=== PATIENT | male | born 1960 | race Caucasian/White ===

== ENCOUNTER 2020-06-14 12:53 | Outpatient (RCR) | payer BC ==
[2020-06-10 17:53] VITALS: BP 139/106
[2020-06-10] MEDS: SOLU MEDROL IV SCH ×2 (18:13)
[2020-06-10] MEDS: NS IV SCH ×2 (18:13)
[2020-06-11 13:00] VITALS: BP 139/84
[2020-06-11] MEDS: SOLU MEDROL IV SCH ×2 (13:01)
[2020-06-11] MEDS: NS IV SCH ×2 (13:01)
[2020-06-12 12:45] VITALS: BP 121/66
[2020-06-12] MEDS: NS IV SCH ×2 (13:14)
[2020-06-12] MEDS: SOLU MEDROL IV SCH ×2 (13:14)
[2020-06-13 12:45] VITALS: BP 130/83
[2020-06-13] MEDS: SOLU MEDROL IV SCH ×2 (12:46)
[2020-06-13] MEDS: NS IV SCH ×2 (12:46)
[~2020-06-14] VITALS: Ht 175 cm
[~2020-06-14 12:53] MED LIST: BENICAR HCT
[2020-06-14] MEDS: SOLU MEDROL IV SCH ×2 (13:11)
[2020-06-14] MEDS: NS IV SCH ×2 (13:11)
[2020-06-14 13:15] VITALS: BP 141/87
== END 2020-09-08 | disposition home or self-care (01) ==
LOC: SDC 12:53
PROVIDERS: ATTEND Internal Medicine
DX: Z23 Encounter for immunization (principal); U07.1 COVID-19
CPT/HCPCS: 96365

== ENCOUNTER → 2020-06-26 | Outpatient (CLI) | payer BC ==
[~2020-06-26] MED LIST changes: +GADOBUTROL 10 MMOL/10 ML (GADAVIST) VIAL IV ONE
--- NOTE | 2020-06-26 15:58 | Diagnostic Imaging Report ---
PROCEDURE: MR imaging of the brain with and without contrast. TECHNIQUE: Multiplanar, multisequence MR imaging of the brain was performed with and without contrast. INDICATION: Weakness. Unsteadiness. Tremors. Symptoms started after COVID vaccine. COMPARISON: None. FINDINGS: Moderate generalized cerebral and cerebellar parenchymal volume loss. Mild nonspecific T2 hyperintensities in the supratentorial white matter. No abnormal intracranial enhancement. No restricted water diffusion. No hemosiderin deposition or evidence of intracranial hemorrhage. Normal morphology including the major midline structures, sella, posterior fossa, and cerebellopontine angle. Normal intracranial flow voids. No hydrocephalus or extra-axial fluid collections. Postoperative changes in the globes. Mild mucosal thickening in ethmoid sinuses. The mastoids are clear. Normal bone marrow signal. IMPRESSION: 1. Age-appropriate MRI of the brain. No acute findings. 2. Mild mucosal thickening in the ethmoid sinuses. Dictated by: Dictated on workstation # [id number]
== END ==
LOC: RAD 14:30
DX: M62.81 Muscle weakness (generalized) (principal); J34.89 Other specified disorders of nose and nasal sinuses
CPT/HCPCS: 70553

== ENCOUNTER → 2020-07-10 | Outpatient (CLI) | payer BC ==
--- NOTE | 2020-07-10 12:59 | Diagnostic Imaging Report ---
CLINICAL INDICATION: Patient having weakness, unsteadiness, tremors which started after getting Covid and then the vaccine. EXAM: MRI of the cervical spine performed without and with 9 mL of Gadavist IV contrast IV contrast. Sequences include sagittal T1, sagittal T2, sagittal T2 fat-sat, axial T1, axial T2, sagittal T1 fat-sat post IV contrast, and axial T1 post IV contrast. COMPARISON: None. FINDINGS: There is no abnormal IV contrast enhancement. There is no acute cervical spine fracture. There is no abnormal vertebral body signal. Limited visualization of posterior fossa and cervical spinal cord shows no significant abnormality. There are multilevel cervical spine vertebral body spurs and facet arthropathy. There is no significant paraspinal soft tissue abnormality. C1-C2: There are small spurs involving the atlantoodontoid interval anteriorly. There is no significant central canal stenosis. C2-C3: There is mild left facet arthropathy. There is no significant central spinal canal or neural foramen narrowing. C3-C4: There is 3 mm of grade 1 anterolisthesis of C3 on C4. There is a diffuse disk bulge and small bilateral uncinate spurs. There is mild lateral facet arthropathy and ligamentum flavum buckling. There is severe left neural foramen narrowing and at least moderate right neural foramen narrowing. There is moderate central canal stenosis. C4-C5: There is roughly 1-2 mm of grade 1 anterolisthesis of C4 on C5. There is diffuse disk bulge with moderate loss of disk space height and bilateral uncinate spurs. There is moderate right facet arthropathy and mild left facet arthropathy. There is severe right neural foramen narrowing and at least dtsq-nf-nkmklwvq left neural foramen narrowing. There is qxbd-aj-syzfwnqs central canal stenosis. C5-C6: There is a diffuse disk bulge, small bilateral uncinate spurs, and mild bilateral facet arthropathy with hypertrophic changes on the right. There is at least severe right neural foramen narrowing and at least ebmw-qb-dliutmam left neural foramen narrowing. There is no significant central canal stenosis. C6-C7: There is a diffuse disk bulge with superimposed small disk herniation in the left subarticular region. There is mild loss of disk space height. There is mild bilateral facet arthropathy. There is mild central canal narrowing. There is qzumwtjd-so-fhlroi bilateral neural foramen narrowing. C7-T1: There is moderate bilateral facet arthropathy and ligamentum flavum buckling. There is no significant central canal narrowing. There is mild left neural foramen narrowing and kcnh-mn-jddkromy right neural foramen narrowing. IMPRESSION: 1: There is multilevel cervical spine degenerative disk disease which is worse at the C3-C4 and C4-C5 levels. 2: There is grade 1 anterolisthesis of C3 on C4 and C4 on C5. There is associated diffuse disk bulges and facet arthropathy. There is moderate C3-C4 central canal narrowing and egjl-mc-phqzbaoa C4-C5 central canal narrowing. 3: There is multilevel neural foramen narrowing, as described above. Dictated by: Dictated on workstation # [id number]
== END ==
LOC: RAD 10:57
DX: M50.31 Other cervical disc degeneration, high cervical region (principal); M43.12 Spondylolisthesis, cervical region; M48.02 Spinal stenosis, cervical region
CPT/HCPCS: 72156

== ENCOUNTER → 2020-07-15 | Outpatient (CLI) | payer BC ==
--- NOTE | 2020-07-15 09:10 | Diagnostic Imaging Report ---
EXAMINATION: Cervical spine with flexion and extension. INDICATION: Thoracic radiculopathy. TECHNIQUE: Five views were obtained including flexion and extension views in the lateral projection. COMPARISON: There are no prior plain film examinations of the cervical spine available for comparison. The recent MRI cervical spine exam of 07/10/2020 did reveal multilevel cervical spine degenerative disc disease. The C3-C4 and C4-C5 levels seem to be the most significantly affected. FINDINGS: On the lateral image of this exam, there is again slight anterior translation of C3 with respect to C4. The disc spaces at the C4-C5, C5-C6, and C6-C7 levels are also slightly narrowed. There does not appear to be any significant motion between C3 and C4 with flexion or extension. There is no fracture or acute bony abnormality noted. There is no sign of retropharyngeal edema. There is suggestion of soft tissue fullness along the posterior aspect of the proximal most trachea, however. In reviewing the recent MRI cervical spine exam, there was no sign of a mass in this area. The lung apices are clear. IMPRESSION: 1. There is no evidence for an acute bony abnormality. 2. There does not appear to be any significant movement between C3 and C4 with flexion or extension to suggest instability. Dictated by: Dictated on workstation # [id number]
--- NOTE | 2020-07-15 10:20 | Diagnostic Imaging Report ---
EXAMINATION: MRI thoracic spine with and without contrast. INDICATION: Progressive weakness and unsteadiness. Electrical sensations. COMPARISON: Correlation made with prior brain MRI from 06/26/2020 and MRI cervical spine from July 10, 2020. TECHNIQUE: Multiplanar, multisequence MRI of the thoracic spine was performed with and without contrast. FINDINGS: Alignment of the thoracic spine is within normal limits. The vertebral body heights are well maintained. There are multilevel endplate changes present within the thoracic spine but no finding of marrow signal abnormality to suggest an acute or suspicious osseous abnormality. The facets are normally aligned. There is no abnormal signal within the disc spaces. The thoracic cord is normal in caliber. There is no finding of cord expansion. There is no convincing evidence of cord signal abnormality or cord edema. There is no finding of an abnormal epidural process. There do appear to be some tiny serpiginous flow voids posterior to the thoracic cord at the T10 and T11 level. These are confirmed on the postcontrast images where there appear to be serpiginous vessels along the dorsal surface of the cord extending from the mid aspect of the T9 vertebral body to the mid aspect of T11. These are best demonstrated on image 7 of series 9 on the sagittal T1 fat-sat sequence. Additionally, there is a small tangle of vessels demonstrated slightly to the left of midline on image 6 posterior to T9. These findings are suspect for the possibility of an underlying dural AV fistula. There is no disc bulge or evidence of a disc herniation. There is some mild lower lumbar facet hypertrophy. There are, however, no MR findings of high-grade thoracic canal or neural foraminal stenosis. The paraspinal soft tissues are unremarkable. The thoracic aorta is normal in caliber. There appears to be a small hiatal hernia. The kidneys are nonobstructed. Some patchy signals within the lungs on the T1-weighted images is likely artifact. IMPRESSION: 1. While subtle, there do appear to be small serpiginous vessels which are posterior to the thoracic cord at T9-T11. There appears to be a small tangle of vessels along the left dorsal cord at T9. The findings are suspect for the possibility of a dural AV fistula. 2. There are, however, no current findings by MRI to suggest cord signal abnormality, cord expansion or edema. 3. No abnormal epidural process. 4. Thoracic spine alignment normal without acute or suspicious osseous abnormality. While there are multilevel degenerative endplate changes, there is no finding of significant disc bulge, disc herniation or evidence of significant canal or foraminal stenosis. 5. No finding of abnormal enhancement within the cord, itself. 6. If appropriate clinical presentation, these lower thoracic vessels would be best assessed and characterized with selective digital subtraction spinal angiography. Dictated by: Dictated on workstation # [id number]
== END ==
LOC: RAD 08:45
DX: M54.14 Radiculopathy, thoracic region (principal); R26.81 Unsteadiness on feet; R53.1 Weakness
CPT/HCPCS: 72050; 72157

== ENCOUNTER → 2020-12-30 | Outpatient (CLI) | payer BC ==
[~2020-12-30] MED LIST changes: +CATHETER FLUSH 10 ML SYR IV PRN; +FLUO20CA46 PO; +FOLI1TAB33 PO; -GADOBUTROL 10 MMOL/10 ML (GADAVIST) VIAL IV ONE; +HYDR12.56 PO; +IVIG; +METH2.5T PO; +NEBI20TA2 PO; +NF-ADDXR30 PO; +OXYC-556 PO; +REGADENOSON 0.4 MG/5 ML SYR (LEXISCAN) IV ONE; +ZOLP10TA PO
[2020-12-30 15:45] VITALS: BP 139/111
--- NOTE | 2020-12-30 15:45 | Cardiology Stress Test Report ---
Stress Test Report Date of Procedure/Referring: Date of Procedure: Dec 30, 2020 PCP Lizette Jackson MD Admitting Physician No,Local Physician Indications: Dyspnea Baseline Heart Rate: 86 Baseline Blood Pressure: Blood Pressure Systolic: 139 Blood Pressure Diastolic: 111 Baseline EKG: Baseline EKG: NSR Summary After explaining the procedure to the patient, he signed a consent and then brought to the stress nuclear laboratory. Patient received 0.4 mg Lexiscan for stress test, ECG, heart rate and blood pressure were monitored continuously. Resting and stress dose of radio tracer were injected, imaging was acquired and reviewed in short axis, horizontal long axis and vertical long axis views. TID: 1.08 SSS: 5 SDS: 3 EF: 61 1. Patient tolerated Lexiscan well 2. Mild decreased uptake involving the anteroapical and inferior apical segment of the lateral wall, small area. There is no significant ischemia or infarction on SPECT images 3. Normal left ventricular size, EF 61% LIZETTE JACKSON MD Dec 30, 2020 15:45
== END ==
LOC: CARD 12:12
PROVIDERS: ATTEND Internal Medicine Cardiovascular Disease
DX: I11.9 Hypertensive heart disease without heart failure (principal); I25.10 Atherosclerotic heart disease of native coronary artery without angina pectoris
CPT/HCPCS: 78452; 93017; 93306; A9502

== ENCOUNTER 2021-01-01 07:11 | Day surgery (SDC) | payer BC ==
[~2021-01-01] VITALS: Ht 182 cm; Wt 96.0 kg
[2021-01-01] VITALS (8 sets, daily range): BP systolic 110–126; BP diastolic 65–86
[~2021-01-01 07:11] MED LIST changes: -CATHETER FLUSH 10 ML SYR IV PRN; -FLUO20CA46 PO; -FOLI1TAB33 PO; -HYDR12.56 PO; -IVIG; -METH2.5T PO; -NEBI20TA2 PO; -NF-ADDXR30 PO; -OXYC-556 PO; -REGADENOSON 0.4 MG/5 ML SYR (LEXISCAN) IV ONE; -ZOLP10TA PO
--- OUTSIDE RECORDS SUMMARY | 2021-01-01 07:14 | XMS REPORT | Clinical Summary ---
Author Author [facility] Organization [facility] Address Unknown Phone Unavailable Care Team Providers Care Supplier Quality Engineer Name Role Phone Debra Borrero MD Unavailable Florentin Perez DO PCP Sybil Bauer MD Unavailable [phone] Source Comments Some departments are not documenting in the electronic medical record. If you d o not see the information that you expected, contact Release of Information in [facility] [employer] Information Management department at [phone] for further assistan ce in locating additional records.[facility] Allergies No Known Active Allergies Medications End Date Status Medication Sig Dispensed Refills Start Date Active nebivolol HCl (BYSTOLIC Take 200 mg 0 PO) by mouth daily. Active HYDROCHLOROTHIAZIDE PO Take 12.5 mg 0 by mouth daily. Active zolpidem (AMBIEN) 10 mg Take 10 mg by 0 tablet mouth at bedtime as needed for Sleep. Active oxyCODONE/acetaminophen Take 1 tablet 0 (PERCOCET) 10/325 mg by mouth as tablet Needed for Pain Active methotrexate sodium 2.5 Take 2.5 mg 0 mg tablet by mouth every 7 days. Active FOLIC ACID PO Take by 0 mouth daily. Active FLUoxetine (PROZAC) 20 mg Take 20 mg by 0 capsule mouth daily. Active dextroamphetamine/ampheta Take 30 mg by 0 mine (ADDERALL PO) mouth daily. Active Problems Problem Noted Date Rapidly progressive weakness 07/20/2020 Encounters Care Team Description Date Type Specialty Jim Candelario MD 12/18/2020 Documentation Neurology Jim Candelario MD Care Coordination 12/18/2020 Telephone Neurology Jim Candelario MD General Question 12/16/2020 Telephone Neurology Jim Candelario MD 12/15/2020 Documentation Neurology Jim Candelario MD Demyelinating neuropathy 12/14/2020 Procedure visit Neurology Jim Candelario MD Demyelinating neuropathy (Primary Dx); Weakness; Tremor; Gait instability 12/14/2020 Office Visit Neurology 12/14/2020 Travel from Last 3 Months Surgical History Surgery Date Site/Laterality Comments HX APPENDECTOMY ABDOMEN SURGERY Medical History Medical History Date Comments Arthritis Hypertension Generalized headaches Memory loss Movement disorder CIDP Sleep disorder Family History Medical History Relation Name Comments Diabetes Mother Hypertension Mother Neuropathy Mother Relation Name Status Comments Mother Social History Date Tobacco Use Types Packs/Day Years Used Never Smoker Smokeless Tobacco: Never Used Comments Alcohol Use Standard Drinks/Week Never 0 (1 standard drink = 0.6 o z pure alcohol) Alcohol Habits Answer Date Recorded How often do you have a drink containing alcohol? Never 07/20/2020 How many drinks containing alcohol do you have on No t asked a typical day when you are drinking? How often do you have six or more drinks on one Not asked occasion? Comment: Not asked Sex Assigned at Date Recorded Not on file Date Recorded COVID-19 Exposure Response 12/14/2020 8:45 AM CDT In the last month, have you been in contact with No / Unsure someone who was confirmed or suspected to have Coronavirus / COVID-19? Last Filed Vital Signs Reading Time Taken Comments Vital Sign 122/71 12/14/2020 1:24 PM CDT Blood Pressure 70 12/14/2020 1:24 PM CDT Pulse 36.8 C (98.3 F) 07/21/2020 9:34 AM CDT Temperature - - Respiratory Rate 97% 07/21/2020 9:34 AM CDT Oxygen Saturation - - Inhaled Oxygen Concentration 99.3 kg (219 lb) 12/14/2020 8:57 AM CDT Weight 182.9 cm (6') 12/14/2020 8:57 AM CDT Height 29.7 12/14/2020 8:57 AM CDT Body Mass Index Plan of Treatment Health Maintenance Due Date Last Done Comments HIV SCREENING 1973 DTAP/TDAP VACCINES (1 - 1976 Tdap) HEPATITIS C SCREENING 1976 PHYSICAL (COMPREHENSIVE) 1976 EXAM COLORECTAL CANCER 2008 SCREENING SHINGLES RECOMBINANT 2008 VACCINE (1 of 2) INFLUENZA VACCINE 10/11/2020 Procedures Comments Procedure Name Priority Date/Time Associated Diag nosis HC IMMUNO FIX SERUM Routine 12/14/2020 Demyelinat ing neuropathy (IFES) 10:11 AM CDT Weakness HC VITAMIN B12 Routine 12/14/2020 Demyelinating n europathy 10:11 AM CDT HC METHYLMALONIC Routine 12/14/2020 Demyelinating neuropathy ACID;QUANT 10:11 AM CDT Weakness HC KAPPA QNT FLC(KLFLC) Routine 12/14/2020 Demyel inating neuropathy 10:11 AM CDT Weakness HC ANGIOTEN CONV Routine 12/14/2020 Demyelinating neuropathy ENZYME(BEE)SER 10:11 AM CDT Weakness HC VASCULAR ENDOTHELIAL Routine 12/14/2020 Demyel inating neuropathy GROWTH FAC MARGARET(VEGF) 10:11 AM CDT Weakness from Last 3 Months Results * VASCULAR ENDOTHELIAL GROWTH FACTOR, MARGARET (VEGF) (12/14/2020 10:11 AM CDT) Pathologist [facility] VEGF-PLASMA 59.4 REFERENCE LAB Comment: Reference range: <=96.2 Unit: pg/mL ADDITIONAL INFORMATION This test was developed and its performance characteristics determined by [facility] in a manner consistent with CLIA requirements. This test has not been cleared or approved by the U.S. Food and Drug Administration. [facility], [facility], [place] [address] Specimen Performing Organization Address City/State/ZIP Code [place] Number REFERENCE LAB REFERENCE LAB See results for address. * METHYLMALONIC ACID QUANT (12/14/2020 10:11 AM CDT) Methylmalonic 0.38 REFERENCE LAB Acid Comment: Reference range: <=0.40 Unit: nmol/mL ADDITIONAL INFORMATION This test was developed and its performance characteristics determined by [facility] in a manner consistent with CLIA requirements. This test has not been cleared or approved by the U.S. Food and Drug Administration. [facility] Specimen Blood Performing Organization Address City/State/ZIP Code [place] Number REFERENCE LAB REFERENCE LAB See results for address. * IMMUNOFIXATION, SERUM (IFES) (12/14/2020 10:11 AM CDT) Immuno NO PARAPROTEIN SEEN MAIN LAB Fix-Serum Pathologist INTERPRETED BY [facility] Signature By the PATH SIGNATURE ABOVE , I attest that I have personally formulated the final interpretation expressed in this report and that the above diagnosis is based upon my examination of the slides and/or other material indicated in this report. Specimen Blood Performing Organization Address [facility] [place] Number MAIN LAB [address] [place] [address] * KAPPA/LAMBDA FREE LIGHT CHAINS (12/14/2020 10:11 AM CDT) Pathologist [facility] [place], FLC 2.45 (H) 0.33 - 1.94 MG/DL MAIN LAB [place], FLC 1.80 0.57 - 2.63 MG/DL MAIN LAB [place]/Lambda 1.36 0.26 - 1.65 MAIN LAB FLC Specimen Blood Performing Organization Address [facility] P [place] Number [facility] MAIN LAB [address] [place] [address] * ANGIOTENSIN CONV ENZYME (BEE) (12/14/2020 10:11 AM CDT) Pathologist [facility] Angiotensin 52 REFERENCE LAB Convert Enzyme Comment: Reference range: 16 to 85 Unit: U/L [facility] Specimen Blood Performing Organization Address City/[facility]/ZIP Code [place] Number REFERENCE LAB REFERENCE LAB See results for address. * VITAMIN B12 (12/14/2020 10:11 AM CDT) Pathologist [facility] Vitamin B12 150 (L) 180 - 914 PG/ML MAIN LAB Specimen Blood Performing Organization Address City/[facility] [place] Number [facility] MAIN LAB [address] [place] [address] from Last 3 Months Insurance Type Payer Benefit Subscriber ID Effective Phone Address Plan / Dates Group PPO BCBS [facility] [id number] 2020- [facility] Present BLUE Advance Directives Patient Geophysical Prospector Explanation Type Date Recorded Advance 07/20/2020 1:19 PM Directive/DPOA Date Inactivated Comments Code Status Date Activated 07/21/2020 12:59 PM Full Code 07/20/2020 8:41 PM Provider has discussed Code Status Yes w/Patient or Family?
--- OUTSIDE RECORDS SUMMARY | 2021-01-01 07:14 | XMS REPORT | Encounter Summary ---
Author Author [facility] Organization [facility] Address Unknown Phone Unavailable Care Team Providers Care Balloon Sander Name Role Phone Debra Borrero MD Unavailable Florentin Perez DO PCP Sybil Bauer MD Unavailable [phone] Encounter Details Care Team Description Date Type Department Jim Cadnelario MD [address] [place] [address] 12/15/2020 Documentation Neurology: [facility] [address] [place] [address] Social History Date Tobacco Use Types Packs/Day [...] or suspected to have Coronavirus / COVID-19? documented as of this encounter Progress Notes * Charlotte Deluna BSN - 12/15/2020 9:53 AM CDT Images from the original note were not included. Faxed MD's message containing plan of care and care coordination to be done loca lly, and OV note from 12/14/20, to Dr Sybil Bauer at [phone]. Rec eived fax confirmation at 10:22am. documented in this encounter Plan of Treatment Not on filedocumented as of this encounter Visit Diagnoses Not on filedocumented in this encounter Additional Health Concerns Assessment Noted Time A fall risk assessment has been completed for the pat ient 12/14/2020 9:11 AM CDT PHQ-2 Depression Total Score: 0 12/14/2020 9:10 AM CDT documented as of this encounter
--- OUTSIDE RECORDS SUMMARY | 2021-01-01 07:14 | XMS REPORT | Encounter Summary ---
Author Author [facility] Organization [facility] Address Unknown Phone Unavailable Care Team Providers Care Massage Therapy Instructor Name Role Phone Debra Borrero MD Unavailable Florentin Perez DO PCP Reason for Referral * Consult, Test & Treat (Routine) Referred By Contact Referred To Contact Status Reason Specialty Diagnoses / Procedures Jim Candelario MD [address] [place] [address] [facility] [address] [facility] [place] [address] Authorized Specialty Services Neurology Diagnoses Required Demyelinating neuropathy P rocedures EMG PROCEDURE Electronically signed by Jim Candelario MD at Reason for Visit * Reason Comments New Patient CIDP Encounter Details Care Team Description Date Type Department Jim Candelario MD [address] [place] [address] Demyelinating neuropathy (Primary Dx); Weakness; Tremor; Gait instability 12/14/2020 Office Visit [facility]rology: [facility] [address] [facility] [place] [address] Social History Date Tobacco Use [...] / COVID-19? documented as of this encounter Last Filed Vital Signs Reading Time Taken Comments Vital Sign 122/71 12/14/2020 8:57 AM CDT Blood Pressure 70 12/14/2020 8:57 AM CDT Pulse - - Temperature - - Respiratory Rate - - Oxygen Saturation - - Inhaled Oxygen Concentration 99.3 kg (219 lb) 12/14/2020 8:57 AM CDT Weight 182.9 cm (6') 12/14/2020 8:57 AM CDT Height 29.7 12/14/2020 8:57 AM CDT Body Mass Index documented in this encounter Progress Notes * Jim Candelario MD - 12/14/2020 8:50 AM CDT Date of Service: 12/14/2020 Subjective: Jean Pierre Vazquez is a 60 y.o. male. 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 Sybil Garcia. He reports he had COVID-19 infection on 03/10/20 with minimal symptoms (hyposmia only) t the time. He then took the Moderna COVID-19 vaccine 2 days later ie on 03/12/21. Following that, that very evening he got home and couldn't get up agai n. He lay in bed for 36 hours straight. He felt paralyzed in his arms and legs, with numbness/tingling from the hips and elbows down. He had to rely on a walker or at least use a cane with support f household furniture to ambulate. He had graeme cormier talking with his PCP about his, got 7 days of Solumedrol 125 mg IV daily but it didn't help. 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 He eventually got to see Dr. Garcia in June 2020, underwent MRIs, EMG and LP which led to the diagnosis of CIDP. In the interim he also saw a brennen rosurgeon hoping that it was his spine and that was the culprit but he was infor med that was no significant stenosis that would be contributing to his symptoms or that required surgery. Upon diagnosis of CIDP he got a loading dose of IVIG over 5 days, about a week a fter that he started regaining some ambulatory stability and strength that the e ffect only lasted about 3 weeks and his symptoms started to return soon after th at. He has since been getting 1 g/kg split over 2 days every 3 weeks. He start s to have improvement about 3 to 4 days after an infusion, he gets them at an in [facility], the infusions themselves are complicated by significant headaches which have improved with pretreatment with Benadryl, Tylenol and Solu-Medrol wh ich he gets 125 mg IV on both days of the treatment. Since he has been getting the Solu-Medrol he has noticed easy bruising and would like to get off of it if possible. He thinks the Benadryl when given IV helps much more than anything el se with the headaches. Sometimes the headache may last up to a week. But with the pretreatment, the infusions are manageable, when tried to wean from every 3 weeks to every 4 weeks, he may start to have rapidly worsening weakness between 3 and 4 weeks due to which the frequency has been maintained as above. He does not necessarily have wearing off symptoms prior to the third weekly infusion but this is not very clear. No paresthesias in his trunk or face. He reports that sometimes when he bends h is head forward he can have sharp shooting pains from his neck down into his low back. He also reports positional worsening of paresthesias in his arms if he l ays down a certain way with his neck hanging back or his arms are positioned a c ertain way requiring him to raise them up and work higher in order for them did not go numb on him. He has not previously been diagnosed with carpal or cubital tunnel syndromes. During the last neuro follow-up he was also informed that his arms are considerably weaker than they were 6 weeks prior to that. He also thin ks the paresthesias in his arms are worse over the past 2 months, thinks he has continued to have progression. No ocular or bulbar weakness endorsed. He has a longstanding history of rheumatoid arthritis for which he has been on m ethotrexate for the past 12 years and that has been keeping it under control. He was started on Prozac recently by his local neurologist due to depressive sym ptoms related to his diagnosis its associated disability/morbidity. Medical History: Diagnosis Date Arthritis Generalized headaches Hypertension Memory loss Movement disorder CIDP Sleep disorder Surgical History: Procedure Laterality Date ABDOMEN SURGERY HX APPENDECTOMY Family History Problem Relation Age of Onset Diabetes Mother Hypertension Mother Neuropathy Mother Social History Socioeconomic History Marital status: Spouse name: Not on file Number of children: Not on file Years of education: Not on file Highest education level: Not on file Occupational History Not on file Tobacco Use Smoking status: Never Smoker Smokeless tobacco: Never Used Substance and Sexual Activity Alcohol use: Never Drug use: Never Sexual activity: Not on file Other Topics Concern Not on file Social History Narrative Not on file Review of Systems Constitutional: Positive for activity change, fatigue and unexpected weight estrada ge. HENT: Positive for hearing loss. Respiratory: Positive for shortness of breath. Musculoskeletal: Positive for arthralgias, back pain, gait problem and myalgias. Neurological: Positive for weakness, numbness and headaches. All other systems reviewed and are negative. Objective: dextroamphetamine/amphetamine (ADDERALL PO) Take 30 mg by mouth daily. FLUoxetine (PROZAC) 20 mg capsule Take 20 mg by mouth daily. FOLIC ACID PO Take by mouth daily. HYDROCHLOROTHIAZIDE PO Take 12.5 mg by mouth daily. methotrexate sodium 2.5 mg tablet Take 2.5 mg by mouth every 7 days. nebivolol HCl (BYSTOLIC PO) Take 200 mg by mouth daily. oxyCODONE/acetaminophen (PERCOCET) 10/325 mg tablet Take 1 tablet by mouth a s Needed for Pain zolpidem (AMBIEN) 10 mg tablet Take 10 mg by mouth at bedtime as needed for Sleep. Vitals: 12/14/20 0857 Weight: 99.3 kg (219 lb) Height: 182.9 cm (72") PainSc: Four Body mass index is 29.7 kg/m. Physical Exam General: No apparent distress RS: On room air, comfortable CV: No pedal edema, regular rate and rhythm GI: Soft, non-tender to palpation Neurological examination: Mental Status: Alert, oriented to time, place and person CN II thru XII: Pupils 3mm, reactive to light and accommodation, intact extraocu lar movements, intact facial sensation, intact hearing, symmetric palatal eleva tion, able to shrug shoulders equally on both sides, tongue midline. Palpebral Fissure 10/10 Orb Oculi 5 Orb Tiesha 5/5 Tongue 5/5 Speech: No Dysarthria Motor Exam: Neck flexors: 5 Neck extensors: 5 Right Left Right Left Shoulder abductors: 4 (tremor, gw) 4 (tremor, gw) Hip flexion: 2 (tremor, gw) 2 (tremor, gw) Elbow flexors: 4 (tremor, gw) 4 (tremor, gw) Hip abduction: 4 (tremor, gw) 4 (tr emor, gw) Elbow extensors: 4+ (tremor, gw) 4 (tremor, gw) Hip Adduction: 4 (tremor, gw) 4 (tremor, gw) Wrist extensors: 5 4+ (tremor, gw) Knee extension: 4 (tremor, gw) 4 (tremor, gw) Wrist flexors: Knee flexion: 4 (tremor, gw) 4 (tremor, gw) Finger flexors: 5 5 Ankle dorsiflexion: 4+ (tremor, gw) 5 Finger extensors: 5 5 Ankle plantar flexion: 5 5 Finger abductors: 5 5 Ankle eversion: 5 5 Thumb abductors: 5 5 Ankle inversion: 5 5 Toe extension: 5 5 Toe flexion: 5 5 No high arches or hammer toes Sensory: Light touch and pinprick diminished to just above the knees bilaterally and intact in the upper extremities. Proprioception lost at the toes but intact at the ankles and fingers. Coordination: Normal finger to nose bilaterally but with postural and kinetic tr emor bilaterally. Reflexes: Reflex Right Left Brachioradialis 2 2 Biceps 1 1 Triceps 2 2 Knee 2 2 Ankle 1 1 Jaw Jerk absent Right Left Plantar response down down Aguila absent absent Gait and Station: Had a lot of difficulty standing from the chair despite using arms. He is very tremulous overall when he stands, which improves slightly but p ersists with walking (using a cane). Normal based unsteady gait with worse unste adiness during turning. Did not attempt heel walk, toe walk, tandem or Romberg. 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 His symptoms involve proximal and distal weakness with paresthesias in all 4 e xtremities, his exam today reveals possible proximal weakness with preserved dis lisa strength although exam was confounded by effort and significant kinetic trem or related giveaway. Reflexes are normal. Outside EMG/NCS suggestive of an axo nal polyneuropathy with demyelinating features, CSF analysis also showed somewha t elevated protein at 76 with 0 WBC and serum + CSF bands suggestive of inflamma tion. It is possible that he either had AIDP or onset of aCIDP that has since be en adequately treated with IVIG. However the timeline of development of an immu ne mediated polyneuropathy following vaccination that very morning is highly unu sual. OSH EMG of RUE and BLEs 07/23/2020 showed R median SNAP prolonged peak latency an d reduced amplitude, absent right ulnar and sural SNAPs, R median CMAP prolonged latency (8.9), reduced amplitude (1.0) with 50% drop in the forearm, intermedia te range MNCV (39), R ulnar CMAP prolonged latency (4.2), reduced amplitude (2) and intermediate range MNCV (36), R peroneal normal latency but reduced amplitud e (0.2) and borderline MNCV (40), R tibial CMAP normal latency, reduced amplitud e (2.6), slightly reduced MNCV (36), L peroneal CMAP slightly prolonged latency (6.9) , normal amplitude and slightly reduced MNCV (38), left tibial CMAP prolon ged latency (7.1), reduced amplitude (3.4) with >50% CB proximally (amplitude 1.1 at the popliteal fossa) and slightly reduced MNCV (40.) OSH LP 07/23/2020 showed WBC 0, RBC 0, glucose 49, protein 76, CSF+serum bands, n ormal IgG synthesis and index, MBP. OSH MRI C spine w/wo 07/10/2020 showed multilevel arthritic changes with C3-C4 mo derate central canal, severe left and moderate right neural foraminal stenoses, C4-C5 mild to moderate central canal, severe right and mild to moderate left brennen ral foraminal stenoses, C5-C6 severe right and mild to moderate left neural fora chloé stenosis, C6-C7 moderate to severe bilateral neural foraminal stenoses, C7 -T1 mild left and mild to moderate right neural foraminal stenosis. According to OSH notes by Dr. Garcia dated 07/22/2020, apparently MRI of the br ain, C and T-spine were completed and did not show any acute pathology, MRI of t he L-spine was obtained and was grossly unrevealing although these reports are n ot available for review here today. Demyelinating neuropathy panel through [facility] lab sent by Dr. Garcia was pertin ent for IgG versus beta tubulin elevated at 10,000 (ULN 2500), remaining panel w as negative including ganglioside antibody panel, anti-MAG, anti-histone, hepara n sulfate, neurofascin 140 and 155 as well as contactin-1 antibodies. Plan: We will first start with repeat EMG/NCS today for comparison and to assess for t reatment response Depending on EMG/NCS results, may require repeat LP or more extensive spine MRIs . We will check labs today including S PATSY, kappa/lambda light chains, BEE, B12, M MA, VEGF levels. Depending on EMG results, will determine IVIG dose adjustments. Discussed eithe r shortening the intervals, increasing the dose or combination thereof, and pote ntially even transitioning to Hizentra given his reported difficulties with IV a ccess. Follow-up in 4 weeks. Jim Candelario MD [facility], Neurology Total time was 90 minutes including preparing to see the patient, obtaining and/ or reviewing separately obtained history, performing a medically appropriate exa mination and/are evaluation, counseling and educating the patient, ordering medi cations, tests or procedures, referring or communicating with other healthcare p rofessionals, documenting clinical information in the electronic health record, independently interpreting results and communicating with them to the patient an d care coordination. Addendum: Interestingly his EMG/NCS performed this afternoon showed near complete normaliz ation of aforementioned findings, and was pertinent for prolonged distal motor d uration of the right median and ulnar nerves to the order of 7.2-7.3 without any other abnormalities and without any conduction block or temporal dispersion. T his may either indicate mild residual demyelinating neuropathy or remarkable sandor atment response. His ambulatory difficulties may be a combination of fatigue, p aresthesias, proprioceptive loss leading to sensory ataxia etc. and this was dis cussed with him. He would benefit from continued PT/OT and he was agreeable to this. Given the dramatic improvement in his EMG, presence of reflexes on exam ( which he reports is an improvement compared to areflexia as observed by his [facility] l neurologist previously), now we will also obtain a repeat LP to check CSF prot ein levels to further delineate status of his inflammatory neuropathy. It is po ssible that he had GBS followed by gradual improvement, but will now try to slow ly wean Solu-Medrol first (2 125 mg IV with 1 instead of both IVIG treatment day s) and then IVIG. If there is symptom relapse or worsening during weaning, will reconsider possibility of CIDP at that point in time. May require repeat elect rophysiologic studies in the future in that case. documented in this encounter Plan of Treatment Order Schedule Name Type Priority Associated Diag noses Ordered: 12/14/2020 EMG PROCEDURE Procedures Routine Demyelinating n europathy documented as of this encounter Procedures Comments Procedure Name Priority Date/Time Associated Diag nosis HC VASCULAR ENDOTHELIAL Routine 12/14/2020 Demyel inating neuropathy GROWTH FAC MARGARET(VEGF) 10:11 AM CDT Weakness HC METHYLMALONIC Routine 12/14/2020 Demyelinating neuropathy ACID;QUANT 10:11 AM CDT Weakness HC IMMUNO FIX SERUM Routine 12/14/2020 Demyelinat ing neuropathy (IFES) 10:11 AM CDT Weakness HC KAPPA QNT FLC(KLFLC) Routine 12/14/2020 Demyel inating neuropathy 10:11 AM CDT Weakness HC ANGIOTEN CONV Routine 12/14/2020 Demyelinating neuropathy ENZYME(BEE)SER 10:11 AM CDT Weakness HC VITAMIN B12 Routine 12/14/2020 Demyelinating n europathy 10:11 AM CDT documented in this encounter Results * VASCULAR ENDOTHELIAL GROWTH FACTOR, MARGARET (VEGF) (12/14/2020 10:11 AM CDT) [facility] VEGF-PLASMA 59.4 REFERENCE LAB Comment: Reference range: <=96.2 Unit: pg/mL ADDITIONAL INFORMATION This test was developed and its performance characteristics determined by [facility] in a manner consistent with CLIA requirements. This test has not been cleared or approved by the U.S. Food and Drug Administration. [facility], [address] [place] [address] Specimen Performing Organization Address City/[facility] P [place] Number REFERENCE LAB REFERENCE LAB See results for address. * ANGIOTENSIN CONV ENZYME (BEE) (12/14/2020 10:11 AM CDT) [facility] Angiotensin 52 REFERENCE LAB Convert Enzyme Comment: Reference range: 16 to 85 Unit: U/L [facility] Specimen Blood Performing Organization Address City/[facility] [place] Number REFERENCE LAB REFERENCE LAB See results for address. * KAPPA/LAMBDA FREE LIGHT CHAINS (12/14/2020 10:11 AM CDT) [facility] [place], FLC 2.45 (H) 0.33 - 1.94 MG/DL MAIN LAB Lambda, FLC 1.80 0.57 - 2.63 MG/DL MAIN LAB [place]/Lambda 1.36 0.26 - 1.65 MAIN LAB FLC Specimen Blood Performing Organization Address [facility] P [place] Number [facility]U MAIN LAB [address] [place] [address] * METHYLMALONIC ACID QUANT (12/14/2020 10:11 AM CDT) [facility] Methylmalonic 0.38 REFERENCE LAB Acid Comment: Reference range: <=0.40 Unit: nmol/mL ADDITIONAL INFORMATION This test was developed and its performance characteristics determined by [facility] in a manner consistent with CLIA requirements. This test has not been cleared or approved by the U.S. Food and Drug Administration. [facility] Specimen Blood Performing Organization Address City/State/ZIP Code P [place] Number REFERENCE LAB REFERENCE LAB See results for address. * VITAMIN B12 (12/14/2020 10:11 AM CDT) Vitamin B12 150 (L) 180 - 914 PG/ML MAIN LAB Specimen Blood Performing Organization Address City/State/ZIP Code [place] Number MAIN LAB [address] [id number] * IMMUNOFIXATION, SERUM (IFES) (12/14/2020 10:11 AM CDT) Immuno NO PARAPROTEIN SEEN MAIN LAB Fix-Serum Pathologist INTERPRETED BY LOVE ALONSO M.D. [facility] N LAB Signature By the PATH SIGNATURE ABOVE , I attest that I have personally formulated the final interpretation expressed in this report and that the above diagnosis is based upon my examination of the slides and/or other material indicated in this report. Specimen Blood Performing Organization Address [facility] P [place] Number MAIN LAB [address] [place] [address] documented in this encounter Visit Diagnoses Diagnosis Demyelinating neuropathy - Primary Mononeuritis of unspecified site Weakness Other malaise and fatigue Tremor Abnormal involuntary movements Gait instability Abnormality of gait documented in this encounter Historical Medications * This list may reflect changes made after this encounter. Start Date End Date Medication Sig Dispensed Refills dextroamphetamine/ampheta Take 30 mg by 0 mine (ADDERALL PO) mouth daily. FLUoxetine (PROZAC) 20 mg Take 20 mg by 0 capsule mouth daily. FOLIC ACID PO Take by 0 mouth daily. methotrexate sodium 2.5 Take 2.5 mg 0 mg tablet by mouth every 7 days. oxyCODONE/acetaminophen Take 1 tablet 0 (PERCOCET) 10/325 mg by mouth as tablet Needed for Pain added in this encounter Additional Health Concerns Assessment Noted Time A fall risk assessment has been completed for the pat ient 12/14/2020 9:11 AM CDT PHQ-2 Depression Total Score: 0 12/14/2020 9:10 AM CDT documented as of this encounter
--- OUTSIDE RECORDS SUMMARY | 2021-01-01 07:14 | XMS REPORT | Encounter Summary ---
Author Author [facility] Organization [facility] Address Unknown Phone Unavailable Care Team Providers Care School Age Teacher Name Role Phone Debra Borrero MD Unavailable Florentin Perez DO PCP Sybil Bauer MD Unavailable [phone] Encounter Details Care Team Description Date Type Department Jim Candelario MD [address] [place] [address] 12/18/2020 Documentation Neurology: [facility] [address] [place] [address] Social History Date Tobacco Use [...] Progress Notes * Charlotte Deluna BSN - 12/18/2020 2:15 PM CDT New patient referral/records reviewed by and given to medical records on 12/18 to be scanned into pt's chart. documented in this encounter Plan of Treatment [...]
--- OUTSIDE RECORDS SUMMARY | 2021-01-01 07:14 | XMS REPORT | Encounter Summary ---
Author Author [facility] Organization [facility] Address Unknown Phone Unavailable Care Team Providers Care Business Office Coordinator Name Role Phone Debra Borrero MD Unavailable Florentin Perez DO PCP Sybil Bauer MD Unavailable [phone] Reason for Visit * Reason Onset Date Comments Care Coordination 12/18/2020 Encounter Details Care Team Description Date Type Department Jim Candleario MD [address] [place] [address] Care Coordination 12/18/2020 Telephone Neurology: [facility] [address] [place] [address] Social History Date Tobacco Use [...] / COVID-19? documented as of this encounter Miscellaneous Notes * Telephone Encounter - Charlotte Deluna BSN - 12/18/2020 8:15 AM CDT LVM clarifying LP and infusion orders. Told to call with further questions/trini rns. documented in this encounter Plan of Treatment [...]
--- OUTSIDE RECORDS SUMMARY | 2021-01-01 07:14 | XMS REPORT | Encounter Summary ---
Author Author [facility] Organization [facility] Address Unknown Phone Unavailable Care Team Providers Care Construction Estimator Name Role Phone Debra Borrero MD Unavailable Florentin Perez DO PCP Encounter Details Care Team Description Date Type Department 12/14/2020 Travel Social History Date Tobacco Use Types Packs/Day [...] / COVID-19? documented as of this encounter Plan of Treatment Not on filedocumented as of this encounter Visit Diagnoses Not on filedocumented in this encounter Additional Health Concerns Assessment Noted Time A fall risk assessment has been completed for the pat ient 12/14/2020 9:11 AM CDT PHQ-2 Depression Total Score: 0 12/14/2020 9:10 AM CDT documented as of this encounter
--- OUTSIDE RECORDS SUMMARY | 2021-01-01 07:14 | XMS REPORT | Encounter Summary ---
Author Author [facility] Organization [facility] Address Unknown Phone Unavailable Care Team Providers Care Coil Assembler Name Role Phone Debra Borrero MD Unavailable Florentin Perez DO PCP Reason for Visit * Reason Comments Test/procedure * Consult, Test & Treat (Routine) Referred By Contact Referred To Contact Status Reason Specialty Diagnoses / Procedures Jim Candelario MD [address] [place] [address] [facility] [address] [place] [address] Authorized Specialty Services Neurology Diagnoses Required Demyelinating neuropathy P rocedures EMG PROCEDURE Encounter Details Care Team Description Date Type Department Jim Candelario MD [address] [place] [address] [phone] Demyelinating neuropathy 12/14/2020 Procedure visit Neurology: [facility] [address] [place] [address] Social History Date Tobacco Use [...] Pressure 70 12/14/2020 1:24 PM CDT Pulse - - Temperature - - Respiratory Rate - - Oxygen Saturation - - Inhaled Oxygen Concentration - - Weight - - Height - - Body Mass Index documented in this encounter Progress Notes * Jim Candelario MD - 12/14/2020 1:30 PM CDT EMG/NCS Procedure Time Out Check List: Prior to the start of the procedure, I personally confirmed the following: Patient Identity (name & date of ): Yes Procedure: Yes Site: Yes Body Part: Yes Time out was performed. On the verbal pain analog scale of 0 to 10, patient's pa in level was 4 before the procedure and 4 afterwards. Test was completed without complication. The risks of the procedure, including pain, were discussed with the patient. documented in this encounter Plan of Treatment Order Schedule Name Type Priority Associated Diag noses Ordered: 12/14/2020 EMG PROCEDURE Procedures Routine Demyelinating n europathy documented as of this encounter Visit Diagnoses Diagnosis Demyelinating neuropathy Mononeuritis of unspecified site documented in this encounter Additional Health Concerns Assessment Noted Time A fall risk assessment has been completed for the pat ient 12/14/2020 9:11 AM CDT PHQ-2 Depression Total Score: 0 12/14/2020 9:10 AM CDT documented as of this encounter
[2021-01-01] MEDS ORDERED: HEParin (CATH LAB) 2,000 ML IV ONE (07:23)
[2021-01-01] MEDS ORDERED: NS IV 1000 ML 1,000 ML ONE (07:23)
[2021-01-01] MEDS ORDERED: LIDOCAINE 1% INJ 20 ML 20 ML VIAL ONE (07:23)
[2021-01-01] MEDS ORDERED: NS IV 1000 ML 1,000 ML IV SCH ×2 (07:30→09:15)
--- NOTE | 2021-01-01 08:04 | Diagnostic Imaging Report ---
EXAMINATION: Chest 1 view HISTORY: Abnormal stress chest. COMPARISON: None available. FINDINGS: The lung volumes are normal. No focal consolidation is seen. No large pleural effusion or pneumothorax is seen. The cardiomediastinal silhouette is normal in size and contour. No acute osseous abnormality is seen. IMPRESSION: 1. No acute pleuroparenchymal process. Dictated by: Dictated on workstation # [id number]
[2021-01-01 08:06] LABS: HEMATOCRIT 42 % (40-54); HEMOGLOBIN 13.5 g/dL (13.3-17.7); MEAN CORPUSCULAR HEMOGLOBIN 31 pg (25-34); MEAN CORPUSCULAR HGB CONC 32 g/dL (32-36); MEAN CORPUSCULAR VOLUME 98 fL (80-99); MEAN PLATELET VOLUME 9.3 fL (9.0-12.2); PLATELET COUNT 402 10^3/uL (130-400); WHITE BLOOD COUNT 3.2 10^3/uL (4.3-11.0)
[2021-01-01] MEDS ORDERED: NEBI20TA2 PO (08:11)
[2021-01-01] MEDS ORDERED: ZOLP10TA PO (08:11)
[2021-01-01] MEDS ORDERED: FOLI1TAB33 PO (08:11)
[2021-01-01] MEDS ORDERED: METH2.5T PO (08:11)
[2021-01-01] MEDS ORDERED: IVIG (08:11)
[2021-01-01] MEDS ORDERED: OXYC-556 PO (08:11)
[2021-01-01] MEDS ORDERED: HYDR12.56 PO (08:11)
[2021-01-01] MEDS ORDERED: FLUO20CA46 PO (08:11)
[2021-01-01] MEDS ORDERED: NF-ADDXR30 PO (08:11)
[2021-01-01 08:19] LABS: INR 0.9 (0.8-1.4); PROTHROMBIN TIME PATIENT 12.2 SEC (12.2-14.7)
[2021-01-01] MEDS ORDERED: fentaNYL INJ 100 MCG/2 ML AMP ONE (08:19)
[2021-01-01] MEDS ORDERED: MIDAZOLAM 5 MG/5 ML (VERSED) VIAL ONE (08:19)
[2021-01-01 08:21] LABS: ALBUMIN 3.5 GM/DL (3.2-4.5); BILIRUBIN,TOTAL 0.3 MG/DL (0.1-1.0); CALCIUM 9.3 MG/DL (8.5-10.1); CREATININE SERUM 1.08 MG/DL (0.60-1.30); POTASSIUM 4.2 MMOL/L (3.6-5.0); TOTAL PROTEIN 9.5 GM/DL (6.4-8.2)
--- NOTE | 2021-01-01 08:21 | Conscious Sedation/ASA ---
Conscious Sedation Pre-Proced Time 08:21 ASA Score 3 For ASA 3 and 4: Consider anesthesia and medical clearance. Also, for patients with a history of failed moderate sedation consider anesthesia. Airway Lungs Heart ASA score ASA 1: a normal healthy patient ASA 2: a patient with a mild systemic disease (mid diabetes, controlled hypertension, obesity x ASA 3: a patient with a severe systemic disease that limits activity (angina, COPD, prior Myocardial infarction) ASA 4: a patient with an incapacitating disease that is a constant threat to life (CHF, renal failure) ASA 5: a moribund patient not expected to survive 24 hrs. (ruptured aneurysm) ASA 6: a declared brain- patient whose organs are being harvested. For emergent operations, add the letter E after the classification Mallampati Classification Grade 3 Sedation Plan Analgesia, Amnesia, Plan communicated to team members, Discussed options with patient/fam, Discussed risks with patient/fam The patient is an appropriate candidate to undergo the planned procedure, sedation, and anesthesia. The patient immediately re-assessed prior to indication. LIZETTE CARVALHO MD Jan 01, 2021 08:21
[2021-01-01] MEDS ORDERED: MIDAZOLAM 2 MG/2 ML (VERSED) VIAL ONE (09:01)
--- NOTE | 2021-01-01 09:10 | Discharge Inst-Post CATH ---
Discharge Inst-CATH/EP Problems Reviewed?: Yes Post Cardiac Cath/EP D/C Inst Follow Up/Plan Appointment with Dr. Jackson's office in 2 to 4 weeks <b>CARDIAC CATH/EP PROCEDURE DISCHARGE INSTRUCTIONS</b> ACTIVITY * Go Home directly and rest. * Limit activity of the leg (or wrist if it was used) for 7 days including aerobics, swimming, jogging, bicycling, etc. * Restrict stair-climbing for 7 days if possible, if not, climb up with your non-cath leg, then bring together on the same step. * Avoid lifting, pushing, pulling or excessive movement of the affected extremity for 7 days. * Customary sexual activity may be resumed after 2 days-use caution not to use a position that strains or causes pain to the affected extremity. * No driving for 24 hours. * NO SMOKING. * Avoid straining for bowel movements for 7 days. * Gentle walking on level ground is allowed. * Returning to work will depend on the type of procedure and the results. Your doctor will discuss this with you. CALL YOUR DOCTOR FOR ANY OF THE FOLLOWING: *If bleeding from the puncture site occurs- Apply gentle pressure to site with clean cloth and call your doctor or EMS. * If a knot or lump forms under the skin, increases in size, or causes pain. * If bruising appears to be worsening or moving further down your leg instead of disappearing. * Temperature above 101 F. CARE OF YOUR GROIN INCISION; * Bruising or purple discoloration of the skin near the puncture site is common. * You may shower only, no bathtub bathing for 5 days. Be careful to avoid slipping as your leg may feel stiff. * If a closure device was used on your femoral artery, please see the attached guide regarding care of the device and your leg. * Leave dressing on FOR 24 hours. CARE OF YOUR WRIST INCISION; * Bruising or purple discoloration of the skin near the puncture site is common. * You may shower. * DO NOT submerge wrist. * Leave dressing on FOR 24 hours. LIZETTE JCAKSON MD Jan 01, 2021 09:10
--- NOTE | 2021-01-01 09:14 | Cardiac Cath Report ---
Cardiac Cath Report Physician (s)/Agile Tester (s) Physician LIZETTE CARVALHO MD Pre-Procedure Diagnosis Pre-Procedure Diagnosis: Coronary artery disease Post-Procedure Note Procedure Start Date: Jan 01, 2021 Name of Procedure: Left heart catheterization Aortic root angiogram Findings/Procedure Note PROCEDURE NOTE: 60 years old gentleman with history of hypertension, has been having increasing dyspnea on exertion, had an abnormal stress test. Scheduled for cardiac catheterization. Echocardiogram showed normal LV function, has slightly prominent aortic root. After explaining the procedure to the patient, all pros and cons were explained, all questions were answered. The patient signed the consent and then he was placed on the cardiac catheterization laboratory. Groin was prepped SL fashion local anesthesia was used. Sheath placed in the right femoral artery. Darren right and left catheter were used to access the coronary system. Pigtail was used to access the left ventricular cavity. Left ventriculogram was not done, pressure was measured Aortic root angiogram was done At the end of the procedure the sheath was removed. Closure device was deployed FINDINGS: Hemodynamics LV 144/16, end-diastolic pressure of 16 Aorta 133/73 mean of 99 ANATOMY: Left Main is free of obstructive disease Left Anterior Descending has mild disease nonobstructive disease Left Circumflex has mild disease nonobstructive disease Right Coronary Artery has mild disease nonobstructive disease LV Gram was not done, left ventricular end-diastolic pressure was normal Aorta evaluation done with aortic root angiogram, slightly prominent aortic root no significant aneurysm or dissection was noted, ascending aorta and aortic arch appeared normal, aortic valve is normal CONCLUSION: 1. Mild coronary artery disease nonobstructive disease 2. Slightly prominent aortic root, no dissection or aneurysm 3. Normal left ventricular end-diastolic pressure. DISCUSSION AND RECOMMENDATION: Medical therapy is recommended no intervention is warranted. Anesthesia Type: Conscious Sedation Estimated blood loss (mL): 10 ml Contrast Amount: 42 ml Total Radiation Dose: 325 mGy Post-Procedure Diagnosis Post-operative diagnosis: Coronary artery disease Shortness of breath Hypertension Hyperlipidemia LIZETTE CARVALHO MD Jan 01, 2021 09:14
[2021-01-01] MEDS ORDERED: PATIENT MAY USE OWN MEDS, ALL PO SCH (09:15)
== END 2021-01-01 13:38 | disposition home or self-care (01) ==
LOC: CATH 07:11 → ICU 09:21 → CATH 13:38
PROVIDERS: ATTEND Internal Medicine Cardiovascular Disease
DX: I25.10 Atherosclerotic heart disease of native coronary artery without angina pectoris (principal); I10 Essential (primary) hypertension; G61.81 Chronic inflammatory demyelinating polyneuritis; E78.5 Hyperlipidemia, unspecified; Z79.899 Other long term (current) drug therapy; Z79.890 Hormone replacement therapy; Z79.891 Long term (current) use of opiate analgesic; Z83.3 Family history of diabetes mellitus
CPT/HCPCS: 71045; 80053; 80061; 85027; 85610; 85730; 87081; 93458; 93567; C1760; C1894; 36415

== ENCOUNTER 2021-06-10 18:00 | Inpatient (IN) | payer BC ==
[~2021-06-10] VITALS: Ht 182 cm; Wt 90.6 kg
[~2021-06-10 18:00] MED LIST changes: +FLUO20CA48 PO; +FOLI1TAB33 PO; +HYDR12.56 PO; +IVIG; +METH2.5T PO; +NEBI20TA2 PO; +NF-ADDXR30 PO; +OXYC-556 PO; +ZOLP10TA PO
[2021-06-10] MEDS ORDERED: LACTATED RINGERS 1,000 ML IV ONE (18:30)
[2021-06-10] MEDS ORDERED: ONDANSETRON 4 MG/2 ML (SDV) Z0FRAN IVP ONE (18:30)
--- NOTE | 2021-06-10 18:31 | ED General ---
General Chief Complaint: General Problems/Pain Stated Complaint: PAIN IN CHEST Source of Information: Patient Exam Limitations: No Limitations History of Present Illness Date Seen by Provider: Jun 10, 2021 Time Seen by Provider: 18:[address] 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 He sees Dr. Perez in [place], and they were thinking he had a port infection given the patient was experiencing some pressure around his port site. He started getting daily ceftriaxone injections for the past [address] Perez called the emergency department stating the patient has not been acting right, is very confused, and he was concerned for his wellness. The [facility] department was called for a wellness check, and afterwards the patient drove himself to the emergency department. He says he has been experiencing fever, but unsure how high. He has had some nausea and nonbloody nonbilious vomiting as recent as today. No diarrhea, chest pain, shortness of breath, abdominal pain, new weakness, new numbness, headache, vision changes, or any other concerns. He says he has been eating and drinking less over the past couple of days. Regarding his CIDP, he mostly experiences lower extremity weakness and scattered numbness. Because of this he has had numerous falls and has bruising all over his body. He does not believe he is really hit his head or passed out, but is not completely sure. He does not take any blood thinners. Allergies and Home Medications Allergies Coded Allergies: No Known Drug Allergies (Verified Allergy, Unknown, 09/13/07) Patient Home Medication List Home Medication List Reviewed: Yes Dextroamphetamine/Amphetamine (Adderall Xr 30 mg Capsule) 30 Mg Cap.er.24h, 30 MG PO EVERY OTHER DAY, (Reported) Entered as Reported by: MERRILL SILVA on 01/01/21 08 Fluoxetine HCl (Fluoxetine HCl) 20 Mg Capsule, 20 MG PO DAILY, (Reported) Entered as Reported by: MERRILL SILVA on 01/01/21810 Folic Acid (Folic Acid) 1 Mg Tablet, 1 MG PO DAILY, (Reported) Entered as Reported by: MERRILL SILVA on 01/01/21810 Hydrochlorothiazide (Hydrochlorothiazide) 12.5 Mg Tablet, 12.5 MG PO DAILY, (Reported) Entered as Reported by: MERRILL SILVA on 01/01/21810 Methotrexate Sodium (Methotrexate) 2.5 Mg Tablet, 2.5 MG PO WEEK, (Reported) Entered as Reported by: MERRILL SILVA on 01/01/21810 Nebivolol HCl (Bystolic) 20 Mg Tablet, 20 MG PO DAILY, (Reported) Entered as Reported by: MERRILL SILVA on 01/01/21810 Oxycodone HCl/Acetaminophen (Oxycodone-Acetaminophen 10-325) 1 Each Tablet, 1 EACH PO Q8H PRN for PAIN-MODERATE, (Reported) Entered as Reported by: MERRILL SILVA on 01/01/21810 Zolpidem Tartrate (Ambien) 10 Mg Tablet, 10 MG PO HS, (Reported) Entered as Reported by: MERRILL SILVA on 01/01/21810 [Benicar Hct] , (Reported) Entered as Reported by: BARBARA TAN on 05/06/092225 [Ivig] , EVERY THREE WEEKS, (Reported) Entered as Reported by: MERRILL SILVA on 01/01/21810 Review of Systems Review of Systems Constitutional: chills, fever EENTM: No blurred vision Respiratory: No cough, No short of breath Cardiovascular: No chest pain Gastrointestinal: No abdominal pain, No diarrhea; nausea, vomiting Genitourinary: No dysuria Musculoskeletal: muscle weakness Skin: other (Scabbing around his port site) Psychiatric/Neurological: Other (Confusion) Hematologic/Lymphatic: No Symptoms Reported Immunological/Allergic: see HPI All Other Systems Reviewed Negative Unless Noted: Yes Past Ueojvcn-Rsgbqu-Tkwygp Hx Patient Social History Tobacco Use?: No Use of E-Cig and/or Vaping dev: No Substance use?: No Alcohol Use?: No Pt feels they are or have been: No Immunizations Up To Date First/Initial COVID19 Vaccinat: 2020 COVID19 Vaccine Milieu Manager: lucina Past Medical History Surgery/Hospitalization HX: CIDP, RA, HTN Surgeries: Yes (multiple laparotomies and SBO's) Appendectomy, Gallbladder Reproductive Disorders: No Physical Exam Vital Signs Vital Signs - First Documented 06/10/21 18:00 Temp 36.0 Pulse 80 Resp 20 B/P (MAP) 149/91 (110) Capillary Refill : Height, Weight, BMI Height: '" Weight: lbs. oz. kg; 28.98 BMI Method: General Appearance: No Apparent Distress, WD/WN Eyes: Bilateral Eye Normal Inspection, Bilateral Eye PERRL, Bilateral Eye EOMI HEENT: PERRL/EOMI, Normal ENT Inspection, Pharynx Normal Neck: Full Range of Motion, Normal Inspection, Non Tender, Supple Respiratory: Chest Non Tender, Lungs Clear, Normal Breath Sounds, No Accessory Muscle Use, No Respiratory Distress Cardiovascular: Regular Rate, Rhythm, No Edema, Normal Peripheral Pulses Gastrointestinal: Normal Bowel Sounds, Non Tender, Soft; No Distended, No Guarding Back: Normal Inspection, No CVA Tenderness, No Vertebral Tenderness Extremity: Normal Capillary Refill, Normal Inspection, Normal Range of Motion, Non Tender, No Calf Tenderness, No Pedal Edema Neurologic/Psychiatric: Alert, Oriented x3, Normal Mood/Affect, life skills educator II-XII Norm as Tested, Other (4/5 strength in his bilateral lower extremities, 5/5 strength in upper extremities, ambulates with assistance) Skin: Normal Color, Warm/Dry, Ecchymosis (scattered bruising along his extremities but no tenderness in these areas), Other (scab around port site around left clavicle, no redness or tenderness, no fluctuance) Lymphatic: No Adenopathy Focused Exam Lactate Level 06/10/21 18:14: Lactic Acid Level 2.26*H 06/10/21 20:18: Lactic Acid Level 1.63 Lactic Acid Level Laboratory Tests Test 06/10/21 18:14 06/10/21 20:18 Lactic Acid Level 2.26 MMOL/L (0.50-2.00) *H 1.63 MMOL/L (0.50-2.00) Procedures/Interventions Discussed Risk,Benefits: Yes Patient Consents: Yes Position: Lying, L3-4, Left Sterile Technique: Yes Opening Pressure: 16 Fluid Color: clear Size of Disposal Tray Used: Adult tolerated well, 7 cc in total removed, 5cc lidocaine 1% used for anesthesia Progress/Results/Core Measures Suspected Sepsis SIRS Temperature: Pulse: Respiratory Rate: Laboratory Tests 06/10/21 18:14: White Blood Count 18.6H Blood Pressure / Mean: 06/10/21 18:14: Lactic Acid Level 2.26*H 06/10/21 20:18: Lactic Acid Level 1.63 Laboratory Tests 06/10/21 18:14: Creatinine 1.10, INR Comment 0.9, Platelet Count 316, Total Bilirubin 0.6 Results/Orders Lab Results Laboratory Tests Test 06/10/21 18:14 06/10/21 19:47 06/10/21 19:58 06/10/21 20:18 Range/Units White Blood Count 18.6 H 4.3-11.0 10^3/uL Red Blood Count 4.62 4.30-5.52 10^6/uL Hemoglobin 12.8 L 13.3-17.7 g/dL Hematocrit 42 40-54 % Mean Corpuscular Volume 91 80-99 fL Mean Corpuscular Hemoglobin 28 25-34 pg Mean Corpuscular Hemoglobin Concent 31 L 32-36 g/dL Red Cell Distribution Width 14.7 H 10.0-14.5 % Platelet Count 316 130-400 10^3/uL Mean Platelet Volume 10.7 9.0-12.2 fL Immature Granulocyte % (Auto) 1 % Neutrophils (%) (Auto) 93 H 42-75 % Lymphocytes (%) (Auto) 4 L 12-44 % Monocytes (%) (Auto) 2 0-12 % Eosinophils (%) (Auto) 0 0-10 % Basophils (%) (Auto) 0 0-10 % Neutrophils # (Auto) 17.3 H 1.8-7.8 10^3/uL Lymphocytes # (Auto) 0.7 L 1.0-4.0 10^3/uL Monocytes # (Auto) 0.4 0.0-1.0 10^3/uL Eosinophils # (Auto) 0.0 0.0-0.3 10^3/uL Basophils # (Auto) 0.0 0.0-0.1 10^3/uL Immature Granulocyte # (Auto) 0.1 0.0-0.1 10^3/uL Neutrophils % (Manual) 92 % Lymphocytes % (Manual) 6 % Monocytes % (Manual) 2 % Blood Morphology Comment NORMAL Prothrombin Time 12.1 L 12.2-14.7 SEC INR Comment 0.9 0.8-1.4 Activated Partial Thromboplast Time 23 L 24-35 SEC Sodium Level 137 135-145 MMOL/L Potassium Level 4.3 3.6-5.0 MMOL/L Chloride Level 99 98-107 MMOL/L Carbon Dioxide Level 22 21-32 MMOL/L Anion Gap 16 H 5-14 MMOL/L Blood Urea Nitrogen 41 H 7-18 MG/DL Creatinine 1.10 0.60-1.30 MG/DL Estimat Glomerular Filtration Rate 75 BUN/Creatinine Ratio 37 Glucose Level 121 H 70-105 MG/DL Lactic Acid Level 2.26 *H 1.63 0.50-2.00 MMOL/L Calcium Level 9.0 8.5-10.1 MG/DL Corrected Calcium 9.3 8.5-10.1 MG/DL Magnesium Level 2.4 1.6-2.4 MG/DL Total Bilirubin 0.6 0.1-1.0 MG/DL Aspartate Amino Transf (AST/SGOT) 24 5-34 U/L Alanine Aminotransferase (ALT/SGPT) 33 0-55 U/L Alkaline Phosphatase 114 40-136 U/L Lactate Dehydrogenase 419 H 125-220 U/L Troponin I < 0.028 <0.028 NG/ML C-Reactive Protein High Sensitivity 0.61 H 0.00-0.50 MG/DL Total Protein 7.6 6.4-8.2 GM/DL Albumin 3.6 3.2-4.5 GM/DL Procalcitonin 0.36 H <0.10 NG/ML Influenza Type A (RT-PCR) Not Detected Not Detecte Influenza Type B (RT-PCR) Not Detected Not Detecte SARS-CoV-2 RNA (RT-PCR) Not Detected Not Detecte Serum Alcohol < 10 <10 MG/DL Urine Color YELLOW Urine Clarity CLEAR Urine pH 5.5 5-9 Urine Specific [place] 1.025 H 1.016-1.022 Urine Protein TRACE H NEGATIVE Urine Glucose (UA) 2+ H NEGATIVE Urine Ketones NEGATIVE NEGATIVE Urine Nitrite NEGATIVE NEGATIVE Urine Bilirubin NEGATIVE NEGATIVE Urine Urobilinogen 0.2 < = 1.0 MG/DL Urine Leukocyte Esterase NEGATIVE NEGATIVE Urine RBC (Auto) NEGATIVE NEGATIVE Urine RBC NONE /HPF Urine WBC NONE /HPF Urine Crystals NONE /LPF Urine Bacteria NEGATIVE /HPF Urine Casts NONE /LPF Urine Mucus SMALL H /LPF Urine Culture Indicated CULTURE PENDING Urine Opiates Screen POSITIVE H NEGATIVE Urine Oxycodone Screen POSITIVE H NEGATIVE Urine Methadone Screen NEGATIVE NEGATIVE Urine Propoxyphene Screen NEGATIVE NEGATIVE Urine Barbiturates Screen NEGATIVE NEGATIVE Ur Tricyclic Antidepressants Screen NEGATIVE NEGATIVE Urine Phencyclidine Screen NEGATIVE NEGATIVE Urine Amphetamines Screen POSITIVE H NEGATIVE Urine Methamphetamines Screen NEGATIVE NEGATIVE Urine Benzodiazepines Screen NEGATIVE NEGATIVE Urine Cocaine Screen NEGATIVE NEGATIVE Urine Cannabinoids Screen NEGATIVE NEGATIVE Test 06/10/21 20:50 Range/Units My Orders Orders - SINDY SALEEM MD Cbc With Automated Diff (06/10/21 18:22) Comprehensive Metabolic Panel (06/10/21 18:22) Blood Culture (06/10/21 18:22) Urinalysis (06/10/21 18:22) Urine Culture (06/10/21 18:22) Protime With Inr (06/10/21 18:22) Partial Thromboplastin Time (06/10/21 18:22) Chest 1 View, Ap/Pa Only (06/10/21 18:22) Ed Iv/Invasive Line Start (06/10/21 18:22) Ekg Tracing (06/10/21 18:22) Troponin I [place] (06/10/21 18:22) Vital Signs Adult Sepsis Patie Q15M (06/10/21 18:22) O2 (06/10/21 18:22) Remove Rings In Anticipation O (06/10/21 18:22) Lactic Acid Analyzer (06/10/21 18:22) Influenza A And B By Pcr (06/10/21 18:22) Lactated Ringers (Lr 1000 Ml Iv Solution (06/10/21 18:30) Procalcitonin (Pct) (06/10/21 18:22) Hs C Reactive Protein (06/10/21 18:22) LDH (06/10/21 18:22) Covid 19 Inhouse Test (06/10/21 18:22) Magnesium (06/10/21 18:22) Ct Head Wo (06/10/21 18:22) Ondansetron Injection (Zofran Injectio (06/10/21 18:30) Manual Differential (06/10/21 18:14) Alcohol (06/10/21 19:47) Drug Screen Stat (Urine) (06/10/21 19:47) Thiamine Injection (Vitamin B-1 Injectio (06/10/21 19:48) Hepatitis Panel Acute (06/10/21 19:50) Hiv 1/2 Antibody (06/10/21 19:50) Csf Cell Count (06/10/21 19:51) Csf Glucose (06/10/21 19:51) Csf Total Protein (06/10/21 19:51) Csf Culture (06/10/21 19:51) Cryptococcus Antigen Csf (06/10/21 19:51) Csf Crp High Sensitivity (06/10/21 19:51) Csf Ldh (06/10/21 19:51) Cytomegalovirus Pcr Quant (06/10/21 19:51) Hsv 1&2 Pcr (Csf/Fluid) (06/10/21 19:51) Acetaminophen Tablet (Tylenol Tablet) (06/10/21 20:15) Oxycodone Immediate Rel Tablet (Oxyir Ta (06/10/21 20:15) Ed Admission (Communication) (06/10/21 21:00) Medications Given in ED Current Medications Medications Dose Ordered Sig/Kathy Route Start Time Stop Time Status Last Admin Dose Admin Lactated Ringer's 1,000 ml @ 0 mls/hr Q0M ONCE IV 06/10/21 18:30 06/10/21 18:31 DC 06/10/21 18:41 1,000 MLS/HR Ondansetron HCl 4 mg ONCE ONCE IVP 06/10/21 18:30 06/10/21 18:31 DC 06/10/21 18:41 4 MG Vital Signs/I&O 06/10/21 18:00 Temp 36.0 Pulse 80 Resp 20 B/P (MAP) 149/91 (110) Capillary Refill : Progress Note : Progress Note 61-year-old male with above history coming in due to confusion and worsening weakness. ABCs were intact and vitals were stable on presentation. Physical exam with lower extremity weakness, but the patient states this is his baseline with his CIDP. He does have scattered bruising around his entire body but no bony tenderness on exam. Physical exam otherwise reassuring. He does have a scab around his port but no clinical signs of infection otherwise. I did a poi nt-of-care ultrasound to see if there is any fluid tracking around it, and there is not. Labs significant for white blood cell count just under 19, lactate around 2.2, negative troponin, slightly elevated CRP and pro calcitonin, normal LFTs and kidney function. CT head and chest x-ray without acute abnormalities. Performed a lumbar puncture given his immunocompromise status and intermittent fevers and confusion. Awaiting results. Discussed the case with Dr. Quigley, Dr. Perez, and the eICU team. The patient will go to the intensive care unit for further evaluation and management as an inpatient status. ECG Initial ECG Impression Date: Jun 10, 2021 Initial ECG Impression Time: 18:04 Initial ECG Rate: 79 Initial ECG Rhythm: Normal Sinus Comment Normal sinus rhythm, narrow QRS, normal axis, significant artifact from motion and baseline wandering, but accounting for that no obvious STEMI Diagnostic Imaging Diagonstic Imaging: Xray (chest), CT (head) Comments [facility] [place], [place] NAME: BEN GUNDERSON [facility] REC#: [id number] PT STATUS: REG ER : 1960 PHYSICIAN: SINDY SALEEM MD ADMIT DATE: 06/10/21/ER Signed Date of Exam:06/10/21 CT HEAD WO EXAMINATION: CT head without contrast. TECHNIQUE: Multiple contiguous axial images were obtained through the brain without the use of intravenous contrast. All CT scans use one or more of the following dose optimizing techniques: automated exposure control, MA and/or KvP adjustment based on patient size and exam type or iterative reconstruction. HISTORY: Falls. Confusion. Head pain. COMPARISON: 06/26/2020. FINDINGS: No large acute territorial ischemia, mass, or hemorrhage. No midline shift or mass effect. The ventricles, cortical sulci, and basilar cisterns are patent and unremarkable. The orbits are normal. Paranasal sinuses are normal. Mastoid air cells are clear. No soft tissue abnormality is seen. No osseus lesions or fractures are seen. IMPRESSION: No large acute territorial ischemia, mass, or hemorrhage. Dictated by: Dictated on workstation # [id number] Dict: 06/10/211916 Trans: 06/10/211921 [id number] Interpreted by: TIMBO MACKENZIE DO Electronically signed by: TIMBO MACKENZIE DO 06/10/211921 [facility] [place], [place] NAME: BEN GUNDERSON [facility] REC#: [id number] PT STATUS: REG ER : 1960 PHYSICIAN: SINDY SALEEM MD ADMIT DATE: 06/10/21/ER Signed Date of Exam:06/10/21 CHEST 1 VIEW, AP/PA ONLY EXAMINATION: Chest 1 view. HISTORY: Confusion, numerous falls, port in place COMPARISON: 12/30/2020. FINDINGS: Heart size and pulmonary vasculature are normal. The lungs are clear without consolidation, pleural effusion, or pneumothorax. The osseous structures are intact. Left-sided port catheter is present. IMPRESSION: No acute radiographic abnormality in the chest. Dictated by: Dictated on workstation # [id number] Dict: 06/10/211915 Trans: 06/10/211923 [facility] [id number] Interpreted by: RICARDO ARBOLEDA DO Electronically signed by: RICARDO ARBOLEDA DO 06/10/211923 Departure Impression Primary Impression: Encephalopathy acute Additional Impressions: Immunocompromised History of fever Disposition: ADMITTED INPATIENT Condition: Stable Admissions Decision to Admit Reason: Admit from ER (General) Decision to Admit/Date: Jun 10, 2021 Time/Decision to Admit Time: 21:00 Departure-Patient Inst. Referrals: NO,LOCAL PHYSICIAN (PCP/Family) Primary Care Physician SINDY SALEEM MD Jun 10, 2021 18:31
[2021-06-10 18:42] LABS: BASOPHILS % (AUTO) 0 % (0-10); EOSINOPHILS % (AUTO) 0 % (0-10); HEMATOCRIT 42 % (40-54); HEMOGLOBIN 12.8 g/dL (13.3-17.7); LYMPHOCYTES # (AUTO) 0.7 10^3/uL (1.0-4.0); LYMPHOCYTES % (AUTO) 4 % (12-44); MEAN CORPUSCULAR HEMOGLOBIN 28 pg (25-34); MEAN CORPUSCULAR HGB CONC 31 g/dL (32-36); MEAN CORPUSCULAR VOLUME 91 fL (80-99); MEAN PLATELET VOLUME 10.7 fL (9.0-12.2); MONOCYTES # (AUTO) 0.4 10^3/uL (0.0-1.0); MONOCYTES % (AUTO) 2 % (0-12); NEUTROPHILS # (AUTO) 17.3 10^3/uL (1.8-7.8); NEUTROPHILS % (AUTO) 93 % (42-75); PLATELET COUNT 316 10^3/uL (130-400); WHITE BLOOD COUNT 18.6 10^3/uL (4.3-11.0)
[2021-06-10 18:47] LABS: ALBUMIN 3.6 GM/DL (3.2-4.5)
[2021-06-10 18:48] LABS: CHLORIDE 99 MMOL/L (98-107); POTASSIUM 4.3 MMOL/L (3.6-5.0); SODIUM 137 MMOL/L (135-145)
[2021-06-10 18:50] LABS: GLUCOSE 121 MG/DL (70-105); TOTAL PROTEIN 7.6 GM/DL (6.4-8.2)
[2021-06-10 18:51] LABS: CARBON DIOXIDE 22 MMOL/L (21-32)
[2021-06-10 18:52] LABS: BILIRUBIN,TOTAL 0.6 MG/DL (0.1-1.0)
[2021-06-10 18:53] LABS: ALKALINE PHOSPHATASE 114 U/L (40-136)
[2021-06-10 18:54] LABS: GFR ESTIMATED 75
[2021-06-10 18:55] LABS: BUN/CREATININE RATIO 37
[2021-06-10 18:56] LABS: MAGNESIUM 2.4 MG/DL (1.6-2.4)
[2021-06-10 18:57] LABS: ALANINE AMINOTRANSFERASE 33 U/L (0-55)
[2021-06-10 19:01] LABS: INR 0.9 (0.8-1.4); PROTHROMBIN TIME PATIENT 12.1 SEC (12.2-14.7)
--- NOTE | 2021-06-10 19:19 | Diagnostic Imaging Report ---
EXAMINATION: CT head without contrast. TECHNIQUE: Multiple contiguous axial images were obtained through the brain without the use of intravenous contrast. All CT scans use one or more of the following dose optimizing techniques: automated exposure control, MA and/or KvP adjustment based on patient size and exam type or iterative reconstruction. HISTORY: Falls. Confusion. Head pain. COMPARISON: 06/26/2020. FINDINGS: No large acute territorial ischemia, mass, or hemorrhage. No midline shift or mass effect. The ventricles, cortical sulci, and basilar cisterns are patent and unremarkable. The orbits are normal. Paranasal sinuses are normal. Mastoid air cells are clear. No soft tissue abnormality is seen. No osseus lesions or fractures are seen. IMPRESSION: No large acute territorial ischemia, mass, or hemorrhage. Dictated by: Dictated on workstation # [id number]
--- NOTE | 2021-06-10 19:19 | Diagnostic Imaging Report ---
EXAMINATION: Chest 1 view. HISTORY: Confusion, numerous falls, port in place COMPARISON: 12/30/2020. FINDINGS: Heart size and pulmonary vasculature are normal. The lungs are clear without consolidation, pleural effusion, or pneumothorax. The osseous structures are intact. Left-sided port catheter is present. IMPRESSION: No acute radiographic abnormality in the chest. Dictated by: Dictated on workstation # [id number]
[2021-06-10] MEDS ORDERED: THIAMINE INJECTION 100 MG, FOLIC ACID INJECTION 1 MG, VITAMIN MULTI INJECTION 10 ML, MA... IV STA ×5 (19:48)
[2021-06-10 20:04] LABS: BILIRUBIN,URINE NEGATIVE (NEGATIVE); CLARITY,URINE CLEAR; GLUCOSE, URINE (UA) 2+ (NEGATIVE); KETONES,URINE NEGATIVE (NEGATIVE); LEUKOCYTE ESTERASE ,URINE NEGATIVE (NEGATIVE); NITRITE,URINE NEGATIVE (NEGATIVE); PH,URINE 5.5 (5-9); PROTEIN,URINE TRACE (NEGATIVE)
[2021-06-10 20:13] LABS: BACTERIA,URINE NEGATIVE /HPF; COLOR,URINE YELLOW
[2021-06-10] MEDS ORDERED: ACETAMINOPHEN 500 MG TAB (TYLENOL) PO ONE (20:15)
[2021-06-10 20:26] LABS: AMPHETAMINE SCREEN, URINE POSITIVE (NEGATIVE); BARBITURATE SCREEN URINE NEGATIVE (NEGATIVE); BENZODIAZEPINES SCREEN URINE NEGATIVE (NEGATIVE); CANNABINOID SCREEN, URINE NEGATIVE (NEGATIVE); COCAINE SCREEN URINE NEGATIVE (NEGATIVE); METHADONE STAT NEGATIVE (NEGATIVE); METHAMPHETAMINE SCREEN URINE S NEGATIVE (NEGATIVE); OPIATE SCREEN URINE POSITIVE (NEGATIVE); OXYCODONE STAT POSITIVE (NEGATIVE); PROPOXYPHENE STAT NEGATIVE (NEGATIVE); TRICYCLIC ANTIDEPRESSANTS SCRE NEGATIVE (NEGATIVE)
[2021-06-10 20:28] LABS: LYMPHOCYTES % (MANUAL) 6 %; MONOCYTES % (MANUAL) 2 %; NEUTROPHILS % (MANUAL) 92 %; RBC MORPH NORMAL
[2021-06-10 21:21] LABS: APPEARANCE,CSF CLEAR; COLOR,CSF COLORLESS; CSF TUBE NUMBER 4; RED BLOOD CELL,CSF 18.8 CELLS (0-0); WHITE BLOOD CELL,CSF 1 CELLS (0-5)
[2021-06-10 21:27] LABS: CSF GLUCOSE 71 MG/DL (50-80)
[2021-06-10 21:33] LABS: CSF TOTAL PROTEIN 38 MG/DL (15-40)
--- NOTE | 2021-06-10 21:38 | Tele-ICU Consult ---
History of Present Illness History of Present Illness Date Seen by Provider: Jun 10, 2021 Time Seen by Provider: 21:33 History of Present Illness 61 yo M, Dx'ed with CIDP, has weakness in lower extremities, Getting IVIG thru port, Also has RA and is on MTX and prednisone, has chronic pain and has increased use of EtOH Has been having fevers at home and self medicated with IV Rocephin at home. Also has been noticed to have confusion. An LP done in ED is pending UDS + for amphetamines, oxycodene, opiods Has been started on IV Vancomyin, Cefepime, acyclovir COVID and flu serology negative Has been started also on Thiamine/Folic Acid/MVI LA 2.2, Procalcitonin and CRP slightly elevated, CXR ok, CT head ok Has chronic pain which he calls 10/20 Allergies and Home Medications Allergies Coded Allergies: No Known Drug Allergies (Verified , 09/13/07) Home Medications Dextroamphetamine/Amphetamine 30 Mg Cap.er.24h, 30 MG PO EVERY OTHER DAY, (Reported) Fluoxetine HCl 20 Mg Capsule, 20 MG PO DAILY, (Reported) Folic Acid 1 Mg Tablet, 1 MG PO DAILY, (Reported) Hydrochlorothiazide 12.5 Mg Tablet, 12.5 MG PO DAILY, (Reported) Methotrexate Sodium 2.5 Mg Tablet, 2.5 MG PO WEEK, (Reported) Nebivolol HCl 20 Mg Tablet, 20 MG PO DAILY, (Reported) Oxycodone HCl/Acetaminophen 1 Each Tablet, 1 EACH PO Q8H PRN for PAIN-MODERATE, (Reported) Zolpidem Tartrate 10 Mg Tablet, 10 MG PO HS, (Reported) [Ivig] , EVERY THREE WEEKS, (Reported) Past Medical/Social/Family Hx Patient Social History Tobacco Use?: No Use of E-Cig and/or Vaping dev: No Substance use?: No Alcohol Use?: No Pt stated abuse/neglect: No Immunizations Up To Date First/Initial COVID19 Vaccinat: 2020 Tetanus Booster (TDap): Less Than 5 Years Current Status Primary Language: Irish Preferred Spoken Language: Irish Implanted or Applied Medical D: Port-a-cath Review of Systems Constitutional: see HPI EENTM: see HPI Respiratory: see HPI Cardiovascular: see HPI Gastrointestinal: see HPI Genitourinary: see HPI Musculoskeletal: see HPI Skin: see HPI Psychiatric/Neurological: See HPI Focused Exam Lactate Level 06/10/21 18:14: Lactic Acid Level 2.26*H 06/10/21 20:18: Lactic Acid Level 1.63 Height, Weight, BMI Height: '" Weight: lbs. oz. kg; 28.98 BMI Method: Lactic Acid Level Laboratory Tests Test 06/10/21 18:14 06/10/21 20:18 Lactic Acid Level 2.26 MMOL/L (0.50-2.00) *H 1.63 MMOL/L (0.50-2.00) Exam Exam Patient acknowledged, consented, and participated in this virtual visit which was conducted using real time audio/video Vital Signs Date Time Temp Pulse Resp B/P (MAP) Pulse Ox O2 Delivery O2 Flow Rate FiO2 06/10/21 18:00 36.0 80 20 149/91 (110) Height & Weight Height: '" Weight: lbs. oz. kg; 28.98 BMI Method: General Appearance: No Apparent Distress, WD/WN, Anxious HEENT: PERRL/EOMI, Normal ENT Inspection, Pharynx Normal Neck: Full Range of Motion, Normal Inspection, Non Tender, Supple Respiratory: Chest Non Tender, Lungs Clear, Normal Breath Sounds, No Accessory Muscle Use, No Respiratory Distress Cardiovascular: Regular Rate, Rhythm, No Edema, Normal Peripheral Pulses, Other (Port looks dirty, not very red, no pus) Gastrointestinal: normal bowel sounds, non tender, soft Extremity: Normal Capillary Refill, Normal Inspection, Normal Range of Motion, Non Tender, No Calf Tenderness, No Pedal Edema Neurologic/Psychiatric: Alert, Oriented x3, Normal Mood/Affect, 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 Norm as Tested, Other (4/5 strength in his bilateral lower extremities, 5/5 strength in upper extremities, ambulates with assistance) Skin: Normal Color, Warm/Dry, Ecchymosis (scattered bruising along his extremities but no tenderness in these areas), Other (scab around port site around left clavicle, no redness or tenderness, no fluctuance) Lymphatic: No Adenopathy Results Lab Laboratory Tests 06/10/21 18:14 Assessment/Plan Assessment/Plan May have infection at port site, will continue present abx pending culture results, Watch for any sign of EtOH withdrawal, Good candidate of ID consult Will give IV morphine 2 mg IVP q 4 h for severe pain Critical Care: Critically Ill Patient JIN NIXON MD Jun 10, 2021 21:37
[2021-06-10] MEDS ORDERED: HYDROmorphone (DILAUDID) 4 MG TAB PO ONE (21:45)
[2021-06-10 22:12] VITALS: BP 121/77
[2021-06-10] MEDS ORDERED: morphine INJ 4 MG/ML 1 ML (VIAL/SYRINGE) IVP PRN (23:30)
--- NOTE | 2021-06-11 00:36 | Progress Note ---
Standard Progress Note Progress Notes/Assess & Plan Date Seen by a Provider: Jun 11, 2021 Time Seen by a Provider: 00:34 Final Diagnosis called for nausea, pt threatening to sign out AMA, QTc is 533, will not give Zofrn, will give 25 mg IV Benadryl MD TIFFANI Diaz,JIN Dela Cruz MD Jun 11, 2021 00:36
[2021-06-11] MEDS ORDERED: diphenhydrAMINE 50 MG/ML INJ (BENADRYL) ONE (00:42)
[2021-06-11] MEDS ORDERED: diphenhydrAMINE 50 MG/ML INJ (BENADRYL) IVP ONE (00:45)
[2021-06-11] MEDS ORDERED: D5 1/2 NS 1000 ML IV SOLUTION 1,000 ML IV PRN (01:00)
[2021-06-11] MEDS ORDERED: ANTACID SUSP 30 ML UDC (MYLANTA) PO PRN (01:00)
[2021-06-11] MEDS ORDERED: ONDANSETRON 4 MG (ZOFRAN) ORAL DISSOLVE TAB PO PRN (01:00)
[2021-06-11] MEDS ORDERED: LORazepam 1 MG (ATIVAN) TAB PO PRN (01:00)
[2021-06-11] MEDS ORDERED: MELATONIN 3 MG TABLET PO PRN (01:00)
[2021-06-11] MEDS ORDERED: VANCOMYCIN INJECTION 0.1 MG in NS (IVPB) 250 ML IV SCH (01:00)
[2021-06-11] MEDS ORDERED: LACTULOSE SYRUP 10GM/15ML (ENULOSE) 30ML UDC PO PRN (01:00)
[2021-06-11] MEDS ORDERED: MILK OF MAGNESIA 400 MG/5 ML 30 ML UDC PO PRN (01:00)
[2021-06-11] MEDS ORDERED: CALCIUM CARBONATE 500 MG (TUMS) TAB.CHEW PO PRN (01:00)
[2021-06-11] MEDS ORDERED: BISACODYL 10 MG SUPP (DULCOLAX) PR PRN (01:00)
[2021-06-11] MEDS ORDERED: diphenhydrAMINE 25 MG TAB (BENADRYL) PO PRN (01:00)
[2021-06-11] MEDS ORDERED: 1/2 NS IV SOLUTION 1,000 ML IV PRN (01:00)
[2021-06-11] MEDS ORDERED: polyethylene glycoL POWDER 17 GM (MIRALAX) PACK PO PRN (01:00)
[2021-06-11] MEDS ORDERED: ONDANSETRON 4 MG/2 ML (SDV) Z0FRAN IV PRN (01:00)
[2021-06-11 01:34] VITALS: BP 149/91
[2021-06-11] MEDS ORDERED: RT-ALBUTEROL SULF 2.5 MG/3 ML PRE-MIX VIAL INH PRN (01:45)
[2021-06-11] MEDS: morphine INJ 4 MG/ML 1 ML (VIAL/SYRINGE) IV PRN ×2 (01:52→05:32)
[2021-06-11] MEDS: NS IV 1000 ML 1,000 ML IV SCH ×3 (02:33→18:16)
[2021-06-11] MEDS: VANCOMYCIN INJECTION 2,000 MG in NS IV 500 ML 500 ML IV ONE ×2 (03:00→05:38)
[2021-06-11] MEDS ORDERED: NS IV 500 ML 500 ML ONE (04:58)
[2021-06-11] MEDS ORDERED: WATER (STERILE) FOR INJECTION 20 ML ONE (05:02)
[2021-06-11] MEDS: AMPICILLIN FOR IV USE 2,000 MG in WATER (STERILE) FOR INJECTION 14.8 ML IV SCH ×2 (05:20→09:45)
[2021-06-11 05:51] LABS: BASOPHILS % (AUTO) 0 % (0-10); EOSINOPHILS % (AUTO) 0 % (0-10); HEMATOCRIT 39 % (40-54); HEMOGLOBIN 12.1 g/dL (13.3-17.7); LYMPHOCYTES # (AUTO) 0.7 10^3/uL (1.0-4.0); LYMPHOCYTES % (AUTO) 9 % (12-44); MEAN CORPUSCULAR HEMOGLOBIN 28 pg (25-34); MEAN CORPUSCULAR HGB CONC 31 g/dL (32-36); MEAN CORPUSCULAR VOLUME 88 fL (80-99); MONOCYTES # (AUTO) 0.4 10^3/uL (0.0-1.0); MONOCYTES % (AUTO) 5 % (0-12); NEUTROPHILS # (AUTO) 7.2 10^3/uL (1.8-7.8); NEUTROPHILS % (AUTO) 85 % (42-75); PLATELET COUNT 271 10^3/uL (130-400); WHITE BLOOD COUNT 8.4 10^3/uL (4.3-11.0)
[2021-06-11] MEDS ORDERED: ACYCLOVIR INJECTION 800 MG in NS (IVPB) 250 ML IV SCH (06:00)
[2021-06-11] MEDS: POTASSIUM CL 10MEQ/50ML IVPB 50 ML IV SCH (06:00)
[2021-06-11] MEDS: MAGNESIUM 1 GM/100 ML IVPB 100 ML IV SCH (06:00)
[2021-06-11] MEDS: KCL 20 MEQ TAB (K-DUR) PO SCH (06:00)
[2021-06-11 06:06] LABS: ALBUMIN 3.3 GM/DL (3.2-4.5); POTASSIUM 4.6 MMOL/L (3.6-5.0)
[2021-06-11 06:07] LABS: CALCIUM 8.8 MG/DL (8.5-10.1)
[2021-06-11 06:09] LABS: TOTAL PROTEIN 6.9 GM/DL (6.4-8.2)
[2021-06-11 06:10] LABS: BILIRUBIN,TOTAL 0.6 MG/DL (0.1-1.0)
[2021-06-11 06:12] LABS: CREATININE SERUM 0.81 MG/DL (0.60-1.30); PHOSPHORUS 4.6 MG/DL (2.3-4.7)
[2021-06-11 06:15] LABS: MAGNESIUM 2.5 MG/DL (1.6-2.4)
--- NOTE | 2021-06-11 06:22 | History & Physical ---
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 Garcia who presented to the ER with confusion and fever. He thought that his port was infected but it did not appear to be irritated or red. Dr. LOCO and called the ER and requested a wellness check for him to be brought to the emergency room because of concerns of confusion. The office systems technology instructor was dispatched to the house and office but the patient ultimately drove himself to the ER and checked himself in. Patient is on a large amount of narcotics due to the pain from CIDP. Dr. LOCO reported he was on a rapid wean of Dilaudid of 8 mg 4 times daily. Patient also has a strong history of alcoholism but patient withholding the exact amount he consumes. Patient did have a lumbar puncture performed in the ER at my request due to profound confusion with fever and immunosuppression. The results revealed no evidence of meningitis so I will discontinue ampicillin and acyclovir and maintain cefepime and vancomycin in the meantime since blood cultures are positive. Patient is in the midst of withdrawal from alcohol and narcotics and will remain in the ICU for close monitoring due to high risk for decompensation and respiratory failure. To note he has had multiple falls at home and he has bruises all over his body. His CT scan revealed no traumatic brain findings. Source: patient, RN/MD Exam Limitations: clinical condition Date Seen 06/11/21 Time Seen by a Provider: 11:00 Attending Physician Marichuy Quigley DO PCP No,Local Physician Referring Physician Date of Admission Jun 10, 2021 at 21:01 Home Medications & Allergies Home Medications Reviewed patient Home Medication Reconciliation performed by pharmacy medication reconciliations registered veterinary technician and/or nursing. Patients Allergies have been reviewed. Allergies Allergies Coded Allergies No Known Drug Allergies (Verified09/13/07) Past Byzyizd-Nwcwih-Hrnivw Hx Past Med/Social Hx: Reviewed Nursing Past Med/Soc Hx, Reviewed and Corrections made Patient Social History Marrital Status: Employed/Student: employed Alcohol Use: Regular Use Smoking Status: Never a Smoker Recent Infectious Disease Expo: No Past Medical History Surgeries: Appendectomy, Gallbladder Neurological: Neuropathy (CIDP) Reproductive: No Musculoskeletal: Rheumatoid Arthritis Review of Systems Constitutional: see HPI, dizziness, malaise, weakness EENTM: no symptoms reported Respiratory: no symptoms reported Cardiovascular: no symptoms reported Gastrointestinal: no symptoms reported Genitourinary: no symptoms reported Musculoskeletal: back pain, joint pain Skin: no symptoms reported Psychiatric/Neurological: See HPI All Other Systems Reviewed Negative Unless Noted: Yes Physical Exam Physical Exam Vital Signs Vital Signs - First Documented 06/10/21 06/10/21 06/11/21 18:00 21:54 01:34 Temp 36.0 Pulse 80 Resp 20 B/P (MAP) 149/91 (110) Pulse Ox 93 O2 Delivery Room Air FiO2 21 Capillary Refill : Height, Weight, BMI Height: '" Weight: lbs. oz. kg; 27.29 BMI Method: General Appearance: No Apparent Distress, WD/WN, Anxious Eyes: Bilateral Eye Normal Inspection, Bilateral Eye PERRL, Bilateral Eye EOMI HEENT: PERRL/EOMI, Normal ENT Inspection, Pharynx Normal Neck: Full Range of Motion, Normal Inspection, Non Tender, Supple Respiratory: Chest Non Tender, Lungs Clear, Normal Breath Sounds, No Accessory Muscle Use, No Respiratory Distress Cardiovascular: Regular Rate, Rhythm, No Edema, Normal Peripheral Pulses, Other (Port looks dirty, not very red, no pus) Gastrointestinal: Normal Bowel Sounds, Non Tender, Soft; No Distended, No Guarding Back: Normal Inspection, No CVA Tenderness, No Vertebral Tenderness Extremity: Normal Capillary Refill, Normal Inspection, Normal Range of Motion, Non Tender, No Calf Tenderness, No Pedal Edema Neurologic/Psychiatric: Alert, Oriented x3, Normal Mood/Affect, 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 Assessment/Plan Admission Diagnosis Assessment: Sepsis with bacteremia of unknown source Altered mental status status post lumbar puncture no evidence of meningitis CIDP Rheumatoid arthritis on methotrexate Immunosuppression Alcoholism Alcohol withdrawal Chronic pain on large amounts of narcotics Narcotic withdrawal Leukocytosis Plan: ICU care Withdrawal protocol Antibiotics Await blood cultures Admission Status: Inpatient Order (span 2 midnights) Reason for Inpatient Admission: Sepsis with withdrawal Diagnosis/Problems Diagnosis/Problems (1) Encephalopathy acute (2) CIDP (chronic inflammatory demyelinating polyneuropathy) (3) Rheumatoid arthritis (4) Alcohol withdrawal (5) Alcoholism (6) Narcotic withdrawal (7) Chronic pain (8) Leukocytosis (9) Altered mental status (10) Immunocompromised Status: Acute Clinical Quality Measures AMI/AHF: ASA po Prior to arrival: MARICHUY Babcock DO Jun 11, 2021 06:22
[2021-06-11] MEDS: KETOROLAC 15 MG/ML VIAL IV SCH ×4 (06:36→18:14)
[2021-06-11] MEDS: CEFEPIME INJECTION 2,000 MG in NS (IVPB) 50 ML IV SCH ×3 (06:42→21:33)
[2021-06-11] MEDS: LORazepam INJ 2 MG/ML (ATIVAN) VIAL IV PRN ×4 (08:27→20:26)
[2021-06-11] MEDS: diphenhydrAMINE 50 MG/ML INJ (BENADRYL) IVP PRN (08:41)
[2021-06-11] MEDS: ACETAMINOPHEN 325 MG TABLET PO PRN (08:44)
[2021-06-11] MEDS ORDERED: THIAMINE INJECTION 100 MG, FOLIC ACID INJECTION 1 MG, VITAMIN MULTI INJECTION 10 ML, MA... IV SCH ×5 (09:00)
[2021-06-11] MEDS: DOCUSATE SODIUM 100 MG (COLACE) CAP PO SCH ×2 (09:42→20:26)
[2021-06-11] MEDS: ENOXAPARIN 40 MG/0.4 ML (LOVENOX) SYR SC SCH (09:42)
[2021-06-11] MEDS: SENNOSIDES 8.6 MG (SENOKOT) TAB PO SCH ×2 (09:42→20:27)
--- NOTE | 2021-06-11 09:59 | Tele-ICU Progress Note ---
Subjective Date Seen by a Provider: Jun 11, 2021 Time Seen by a Provider: 09:58 Subjective/Events-last exam (Tele-ICU Physician , Progress Note ) Available chart/ vitals / labs / Images reviewed Video assessment done using teleICU camera, rest of exam as per RN Discussed with RN , EXAM PER RN Events overnight : NO VEVER < agitated , not confused Afebrile FiO2 - I/O = Drips: Pressors: , hemodynamically stable Consultants: Hospital course: 06/10) Admitted a 61y/o with CIDP on IVIG with stated fevers from home and increased ETOH use. Frequent falls dut to CIDP. Positive for amphetamines, o xycodone and opiods. LP results pending (AMS). HCT (-) A/P AMS change -CTH 06/10 - no acute findings - LP done in ED - AAO now - ? withdrowal ID - fevers (COVID and flu serology negative) -LP 06/10 -May have infection at port site --self medicated with IV Rocephin at home - started on IV Vancomyin, Cefepime, acyclovir - cx pending CIDP, has weakness in lower extremities, -getting IVIG thru port, RA and is on MTX and prednisone- as per PCP to cont ? no need for stress dose Polusynstance abuse -UDS + for amphetamines, oxycodene, opiods -Thiamine/Folic Acid/MVI QTc prolongations -533 - to follow Lines : port (Central Line Necessity Reviewed) Jacques: void OG: Nutrition: Analgesia: Anxiety/ delirium VTE Prophylaxis: yadi Stress Ulcer Prophylaxis: Plans in collaboration with bedside consultants and IM MDs. Discussed with RN to reach out if any questions or concerns A total of 31 minutes of critical care time was devoted to this patient today, required to treat and/or prevent further deterioration of critical care condition ( as above) . Sepsis Event Evaluation Height, Weight, BMI Height: '" Weight: lbs. oz. kg; 27.29 BMI Method: Focused Exam Lactate Level 06/10/21 18:14: Lactic Acid Level 2.26*H 06/10/21 20:18: Lactic Acid Level 1.63 Exam Exam Patient acknowledged, consented, and participated in this virtual visit which was conducted using real time audio/video Vital Signs Date Time Temp Pulse Resp B/P (MAP) Pulse Ox O2 Delivery O2 Flow Rate FiO2 06/11/21 09:00 64 18 112/67 92 Room Air 06/11/21 08:00 70 23 109/84 96 Room Air 06/11/21 07:13 96 Room Air 06/11/21 07:00 68 11 112/56 94 Room Air 06/11/21 07:00 69 06/11/21 06:00 64 17 114/58 96 Room Air 06/11/21 05:00 62 17 120/71 96 Room Air 06/11/21 04:00 60 17 114/71 96 Room Air 06/11/21 04:00 Room Air 06/11/21 03:00 63 17 100/54 96 Room Air 06/11/21 02:00 68 17 106/46 96 Room Air 06/11/21 01:34 36.0 80 96 21 06/11/21 01:00 73 06/11/21 01:00 71 17 108/68 97 Room Air 06/11/21 00:00 93 17 121/107 96 Room Air 06/10/21 23:59 Room Air 06/10/21 23:00 70 16 120/77 96 Room Air 06/10/21 22:30 97 06/10/21 22:12 36.6 69 12 121/77 (92) 93 Room Air 06/10/21 22:00 93 Room Air 06/10/21 21:54 36.4 75 20 121/77 93 Room Air 06/10/21 21:50 36.0 87 18 113/71 06/10/21 18:00 36.0 80 20 149/91 (110) I & O 06/11/21 07:00 Intake Total 1000 ml Output Total 900 ml Balance 100 ml Height & Weight Height: '" Weight: lbs. oz. kg; 27.29 BMI Method: General Appearance: No Apparent Distress, WD/WN, Anxious HEENT: PERRL/EOMI, Normal ENT Inspection, Pharynx Normal Neck: Full Range of Motion, Normal Inspection, Non Tender, Supple Respiratory: Chest Non Tender, Lungs Clear, Normal Breath Sounds, No Accessory Muscle Use, No Respiratory Distress Cardiovascular: Regular Rate, Rhythm, No Edema, Normal Peripheral Pulses, Other (Port looks dirty, not very red, no pus) Gastrointestinal: normal bowel sounds, non tender, soft Extremity: Normal Capillary Refill, Normal Inspection, Normal Range of Motion, Non Tender, No Calf Tenderness, No Pedal Edema Neurologic/Psychiatric: Alert, Oriented x3, Normal 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
--- NOTE | 2021-06-11 10:07 | Physical Therapy Evaluation ---
PT Evaluation-General Medical Diagnosis Admission Date Jun 10, 2021 at 21:01 Medical Diagnosis: AMS Onset Date: Jun 10, 2021 Therapy Diagnosis Therapy Diagnosis: generalized weakness/debility Precautions Precautions/Isolations: Fall Prevention Referral Physician: Soraida Reason for Referral: Evaluation/Treatment Medical History Pertinent Medical History: HTN, Rheumatoid Arthritis Additional Medical History CIDP (chronic inflammatory demyelinating polyneuropathy) Current History ER secondary to AMS and multiple falls Reviewed History: Yes Social History Current Living Status: Spouse Prior Prior Level of Function SCALE: Activities may be completed with or without assistive devices. 7-Aizfuarnpz-qqbxsxg completes the activity by him/herself with no assistance from a helper. 5-Set-up or Clean-up Assistance-helper sets up or cleans up; patient completes activity. [place] assists only prior to or following the activity. 4-Supervision or Touching Assistance-helper provides verbal cues and/or touching/steadying and/or contact guard assistance as patient completes activity. Assistance may be provided throughout the activity or intermittently. 3-Partial/Moderate Assistance-helper does LESS THAN HALF the effort. [place] lifts, holds or supports trunk or limbs, but provides less than half the effort. 2-Substantial/Maximal Assistance-helper does MORE THAN HALF the effort. [place] lifts or holds trunk or limbs and provides more than half the effort. 1-Juaprebqa-dtmkdv does ALL the effort. Patient does none of the effort to complete the activity. Or, the assistance of 2 or more helpers is required for the patient to complete the activity. If activity was not attempted, code reason: 7-Patient Refused. 9-Not Applicable-not attempted and the patient did not perform the activity before the current illness, exacerbation or injury. 10-Not Attempted due to Environmental Limitations-(lack of equipment, weather restraints, etc.). 88-Not Attempted due to Medical Conditions or Safety Concerns. Bed Mobility: 6 Transfers (B,C,W/C): 6 Gait: 6 Indoor Mobility (Ambulation): Independent Prior Devices Use: Other-see list below Prior Device Use: cane PT Evaluation-Current Subjective Patient very confused and appears distressed. C/o severe AMBROCIO Pain Numeric Pain Scale: 10-Worst Possible Pain Location Body Site: Head Pain Description: Acute Comment: medication issued by RN Objective Patient Orientation: Confused ROM/Strength ROM Lower Extremities bilateral LE WFL Strength Lower Extremities 3/5 grossly bilateral LE (unable to formally test due to confusion) Integumentary/Posture Integumentary refer to nursing notes Neuromuscular (Tone, Coordination, Reflexes) diminished coordination Sensory Vision: Wears Glasses Hearing: Functional Sensation Right Lower Extremit: Impaired Sensation Left Lower Extremity: Impaired Transfers Roll Left to Right (QC): 4 Sit to Lying (QC): 4 Lying to Sitting/Side of Bed(Q: 4 Sit to Stand (QC): 3 Chair/Yxg-gb-Gllke Xfer(QC): 3 Gait Does the Patient Walk?: Yes Distance: 5 steps Comments/Gait Description Patient assisted to recliner for bed change due to severe diaphoresis Balance Sitting Static: Fair Sitting Dynamic: Fair Standing Static: Poor Standing Dynamic: Poor Assessment/Needs Patient issued medication to calm patient due to patient appears distressed. Patient displays deconditioned state and impaired mobility. Rehab Potential: Fair PT Jail Goals Snow Shoveler Goals PT Jail Goals Time Frame: Jun 26, 2021 Roll Left & Right (QC): 6 Sit to Lying (QC): 6 Lying-Sitting on Side/Bed(QC): 6 Sit to Stand (QC): 4 Chair/Igl-ys-Qazis Xfer(QC): 4 Toilet Transfer (QC): 4 Walk 10 feet (QC): 4 Walk 50ft with 2 Turns (QC): 4 Walk 150 ft (QC): 4 PT Plan Problem List Problem List: Activity Tolerance, Functional Strength, Safety, Balance, Gait, Transfer, Bed Mobility Treatment/Plan Treatment Plan: Continue Plan of Care Treatment Plan: Bed Mobility, Education, Functional Activity Joselito, Functional Strength, Gait, Safety, Therapeutic Exercise, Transfers Treatment Duration: Jun 26, 2021 Frequency: 6 times per week Estimated Hrs Per Day: .25 hour per day Time/GCodes Time In: 814 Time Out: 836 Total Billed Treatment Time: 21 Total Billed Treatment 1 visit EVMod 21 min TIMOTHY VALDES PT Jun 11, 2021 10:07
[2021-06-11] MEDS: THIAMINE INJECTION 100 MG, FOLIC ACID INJECTION 1 MG, MAGNESIUM SULFATE 2 GM, VITAMIN M... IV SCH ×5 (10:08)
--- NOTE | 2021-06-11 10:22 | Occupational Therapy Eval ---
OT Evaluation-General/PLF Medical Diagnosis Admission Date Jun 10, 2021 at 21:01 Medical Diagnosis: AMS Onset Date: Jun 10, 2021 Therapy Diagnosis Therapy Diagnosis: decreased ADL status Precautions Precautions/Isolations: Fall Prevention Referral Physician: Soraida Zhong Reason: Evaluation/Treatment Medical History Pertinent Medical History: HTN, Rheumatoid Arthritis Additional Medical History CIDP (chronic inflammatory demyelinating polyneuropathy) Current History ER secondary to AMS and multiple falls Social History Home: Single Level Current Living Status: Alone Steps Into Home: 1 ADL-Prior Level of Function SCALE: Activities may be completed with or without assistive devices. 9-Simkhdpnvc-ussaqgk completes the activity by him/herself with no assistance from a helper. 5-Set-up or Clean-up Assistance-helper sets up or cleans up; patient completes activity. [place] assists only prior to or following the activity. 4-Supervision or Touching Assistance-helper provides verbal cues and/or touching/steadying and/or contact guard assistance as patient completes activity. Assistance may be provided throughout the activity or intermittently. 3-Partial/Moderate Assistance-helper does LESS THAN HALF the effort. [place] lifts, holds or supports trunk or limbs, but provides less than half the effort. 2-Substantial/Maximal Assistance-helper does MORE THAN HALF the effort. [place] lifts or holds trunk or limbs and provides more than half the effort. 0-Lfekpdzdc-tdvswa does ALL the effort. Patient does none of the effort to complete the activity. Or, the assistance of 2 or more helpers is required for the patient to complete the activity. If activity was not attempted, code reason: 7-Patient Refused. 9-Not Applicable-not attempted and the patient did not perform the activity before the current illness, exacerbation or injury. 10-Not Attempted due to Environmental Limitations-(lack of equipment, weather restraints, etc.). 88-Not Attempted due to Medical Conditions or Safety Concerns. ADL PLOF Comments Pt reports IND with ADLs and functional mobility, using a cane. he has a walk in shower with built in seat. Self Care: Independent Functional Cognition: Independent OT Current Status Subjective Pt in bed, appears confused throughout tx. 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 Mental Status/Objective Patient Orientation: Person, Confused Attachments: IV Current Hand Dominance: Left Upper Extremity ROM WFL during ADLs Upper Extremity Coordination Slightly decreased but WFL Upper Extremity Sensation WFL Upper Extremity Strength unable to formally assess due to confusion, grossly 3/5 ADL-Treatment Eating (QC): 4 (supervision. Pt able to open containers, cut food and use utensils. Pt opened syrup, spilling onto tray requiring cues.) Oral Hygiene (QC): 4 (Per clincial judgment.) Other Treatments Pt in bed, nurse present. Pt agreeable to OT Tx. Pt provided information about PLOF and home set up. Pt's breakfast tray arrived. Pt able to use utensils to eat eggs independently. Cue provided to locate syrup, pt able to open syrup container, spilling some while opening. Pt asked "what was that", OT cued pt that he had spilled a little syrup. Pt then able to pour remaining syrup onto pancakes. Pt declines other ADLs at this time, in order to eat breakfast. Per PT evaluation, pt required QC 4 for rolling and sit to/from supine, QC 3 for sit to stand and bed to chair transfers. Post tx, pt in bed, call light in reach and all needs met. Education OT Patient Education: Correct positioning, Energy conservation, Modified ADL techniques, Progress toward Goal/Update tx plan, Purpose of tx/functional activities, Rehab process Teaching Recipient: Patient Teaching Methods: Discussion Response to Teaching: Verbalize Understanding, Reinforcement Needed OT Title Clerk Goals Title Clerk Goals Time Frame: Jun 25, 2021 Eating (QC): 6 Oral Hygiene (QC): 6 Toileting Hygiene (QC): 6 Shower/Bathe Self (QC): 4 Upper Body Dressing (QC): 5 Lower Body Dressing (QC): 4 On/Off Footwear (QC): 4 Additional Goals: 1-Demonstrate ADL Tasks, 2-Verbalize Understanding, 3- ImproveStrength/Joselito 1=Demonstrate adherence to instructed precautions during ADL tasks. 2=Patient will verbalize/demonstrate understanding of assistive devices/modifications for ADL. 3=Patient will improve strength/tolerance for activity to enable patient to perform ADL's. OT Education/Plan Problem List/Assessment Assessment: Decreased Activ Tolerance, Decreased Safety Aware, Decreased UE Strength, Impaired Cognition, Impaired Coordination, Impaired Funct Balance, Impaired I ADL's, Impaired Self-Care Skills Discharge Recommendations Plan/Recommendations: Continue POC Treatment Plan/Plan of Care Patient would benefit from OT for education, treatment and training to promote independence in ADL's, mobility, safety and/or upper extremity function for ADL's. Plan of Care: ADL Retraining, Functional Mobility, UE Funct Exercise/Act Treatment Duration: Jun 25, 2021 Frequency: 3 times per week (3-5 times per week) Estimated Hrs Per Day: .25 hour per day Agreement: Yes Rehab Potential: Fair Time/GCodes Start Time: 10:01 Stop Time: 10:11 Total Time Billed (hr/min): 10 Billed Treatment Time 1, JESS BROWNE OT Jun 11, 2021 10:22
[2021-06-11] MEDS ORDERED: DEXT30CA4 PO (10:42)
[2021-06-11] MEDS ORDERED: LORA1TAB54 PO (10:42)
[2021-06-11] MEDS ORDERED: OXYC-527 PO (10:42)
[2021-06-11] MEDS ORDERED: IMMU40VI IJ (10:42)
[2021-06-11] MEDS ORDERED: HYDR4TAB PO (10:42)
[2021-06-11] MEDS ORDERED: NYST1000 PO (10:42)
[2021-06-11] MEDS ORDERED: FLUC200T9 PO (10:42)
[2021-06-11] MEDS ORDERED: NEBI20TA6 PO (10:42)
[2021-06-11] MEDS ORDERED: CALC-250 PO (10:46)
[2021-06-11] MEDS ORDERED: ASPI-1238 PO (10:46)
[2021-06-11] MEDS ORDERED: MULT-1136 PO (10:46)
[2021-06-11] MEDS: VANCOMYCIN INJECTION 1,750 MG in NS IV 500 ML 500 ML IV SCH (13:36)
[2021-06-11 14:25] LABS: HEPATITIS C ANTIBODY C Non-Reactive (Non-Reactive)
[2021-06-12] MEDS: KETOROLAC 15 MG/ML VIAL IV SCH ×5 (00:11→17:54)
[2021-06-12] MEDS: VANCOMYCIN INJECTION 1,750 MG in NS IV 500 ML 500 ML IV SCH ×2 (00:11→12:53)
[2021-06-12] MEDS: NS IV 1000 ML 1,000 ML IV SCH (04:06)
[2021-06-12 05:22] LABS: BASOPHILS % (AUTO) 0 % (0-10); EOSINOPHILS # (AUTO) 0.1 10^3/uL (0.0-0.3); EOSINOPHILS % (AUTO) 1 % (0-10); HEMATOCRIT 35 % (40-54); HEMOGLOBIN 10.8 g/dL (13.3-17.7); LYMPHOCYTES # (AUTO) 1.4 10^3/uL (1.0-4.0); LYMPHOCYTES % (AUTO) 17 % (12-44); MEAN CORPUSCULAR HEMOGLOBIN 28 pg (25-34); MEAN CORPUSCULAR HGB CONC 31 g/dL (32-36); MEAN CORPUSCULAR VOLUME 90 fL (80-99); MEAN PLATELET VOLUME 10.8 fL (9.0-12.2); MONOCYTES # (AUTO) 0.9 10^3/uL (0.0-1.0); MONOCYTES % (AUTO) 11 % (0-12); NEUTROPHILS % (AUTO) 71 % (42-75); PLATELET COUNT 228 10^3/uL (130-400); WHITE BLOOD COUNT 8.5 10^3/uL (4.3-11.0)
[2021-06-12 05:33] LABS: ALBUMIN 2.6 GM/DL (3.2-4.5)
[2021-06-12 05:34] LABS: POTASSIUM 4.7 MMOL/L (3.6-5.0)
[2021-06-12 05:35] LABS: CALCIUM 7.8 MG/DL (8.5-10.1)
[2021-06-12 05:36] LABS: TOTAL PROTEIN 5.4 GM/DL (6.4-8.2)
[2021-06-12 05:38] LABS: BILIRUBIN,TOTAL 0.4 MG/DL (0.1-1.0)
[2021-06-12 05:40] LABS: CREATININE SERUM 0.75 MG/DL (0.60-1.30)
[2021-06-12 05:42] LABS: MAGNESIUM 2.4 MG/DL (1.6-2.4)
[2021-06-12] MEDS: KCL 20 MEQ TAB (K-DUR) PO SCH (06:23)
[2021-06-12] MEDS: MAGNESIUM 1 GM/100 ML IVPB 100 ML IV SCH (06:23)
[2021-06-12] MEDS: CEFEPIME INJECTION 2,000 MG in NS (IVPB) 50 ML IV SCH ×3 (06:23→21:22)
[2021-06-12] MEDS: POTASSIUM CL 10MEQ/50ML IVPB 50 ML IV SCH (06:23)
--- NOTE | 2021-06-12 07:40 | Progress Note ---
Subjective Date Seen by a Provider: Jun 12, 2021 Time Seen by a Provider: 11:00 Subjective/Events-last exam Patient doing a lot better Headache still persists Transfer to fourth floor [place] port is likely source of blood culture + due to eschar on the skin Dr. Whitt consulted Alcohol and narcotic withdrawal is still present but much improved PT and OT ordered Check meds labs Review of Systems General: Fatigue, Malaise Focused Exam Lactate Level 06/10/21 18:14: Lactic Acid Level 2.26*H 06/10/21 20:18: Lactic Acid Level 1.63 Objective Exam Last Set of Vital Signs Vital Signs Date Time Temp Pulse Resp B/P (MAP) Pulse Ox O2 Delivery O2 Flow Rate FiO2 06/12/21 07:00 66 06/12/21 06:00 16 122/70 95 Room Air 06/12/21 00:00 36.8 06/11/21 01:34 21 Capillary Refill : I&O Intake and Output 06/12/21 00:00 Intake Total 1915 ml Output Total 2600 ml Balance -685 ml Intake Oral 750 ml IV Total 1165 ml Output Urine Total 2600 ml General: Alert, Oriented X3, Cooperative, No Acute Distress Lungs: Clear to Auscultation, Normal Air Movement Heart: Regular Rate, Normal S1, Normal S2, No Murmurs Psych/Mental Status: Mental Status NL, Mood NL Results Lab Laboratory Tests 06/11/21 08:24: Glucometer 90 06/11/21 12:16: Glucometer 181H 06/12/21 05:02: White Blood Count 8.5, Red Blood Count 3.90L, Hemoglobin 10.8L, Hematocrit 35L, Mean Corpuscular Volume 90, Mean Corpuscular Hemoglobin 28, Mean Corpuscular Hemoglobin Concent 31L, Red Cell Distribution Width 14.6H, Platelet Count 228, Mean Platelet Volume 10.8, Immature Granulocyte % (Auto) 1, Neutrophils (%) (Auto) 71, Lymphocytes (%) (Auto) 17, Monocytes (%) (Auto) 11, Eosinophils (%) (Auto) 1, Basophils (%) (Auto) 0, Neutrophils # (Auto) 6.0, Lymphocytes # (Auto) 1.4, Monocytes # (Auto) 0.9, Eosinophils # (Auto) 0.1, Basophils # (Auto) 0.0, Immature Granulocyte # (Auto) 0.1, Sodium Level 136, Potassium Level 4.7, Chloride Level 107, Carbon Dioxide Level 18L, Anion Gap 11, Blood Urea Nitrogen 29H, Creatinine 0.75, Estimat Glomerular Filtration Rate 101, BUN/Creatinine Ratio 39, Glucose Level 94, Calcium Level 7.8L, Corrected Calcium 8.9, Magnesium Level 2.4, Total Bilirubin 0.4, Aspartate Amino Transf (AST/SGOT) 18, Alanine Aminotransferase (ALT/SGPT) 25, Alkaline Phosphatase 75, Total Protein 5.4L, Albumin 2.6L Microbiology 06/10/21 Gram Stain - Final, Resulted 06/10/21 CSF Culture - Preliminary, Resulted No growth 06/10/21 Urine Culture - Preliminary, Resulted Gram Positive Cocci 06/10/21 Blood Culture - Preliminary, Resulted No growth Assessment/Plan Assessment/Plan Assess & Plan/Chief Complaint Assessment: Sepsis with bacteremia of unknown source but now presumed to be [place] port Altered mental status status post lumbar puncture no evidence of meningitis so discontinued ampicillin and acyclovir CIDP Rheumatoid arthritis on methotrexate holding immunosuppressants Immunosuppression Alcoholism Alcohol withdrawal protocol Chronic pain on large amounts of narcotics Narcotic withdrawal Leukocytosis improved Plan: ICU care Withdrawal protocol Antibiotics Await blood cultures 06/12/2021: Transfer to fourth floor [place] port removal on Monday and draw blood cultures then replace on Diagnosis/Problems Diagnosis/Problems (1) Encephalopathy acute (2) CIDP (chronic inflammatory demyelinating polyneuropathy) (3) Rheumatoid arthritis (4) Alcohol withdrawal (5) Alcoholism (6) Narcotic withdrawal (7) Chronic pain (8) Leukocytosis (9) Altered mental status (10) Immunocompromised Status: Acute Clinical Quality Measures AMI/AHF: ASA po Prior to arrival: YUAN Babcock DO Jun 12, 2021 07:40
[2021-06-12] MEDS: DOCUSATE SODIUM 100 MG (COLACE) CAP PO SCH ×2 (08:06→21:21)
[2021-06-12] MEDS: ENOXAPARIN 40 MG/0.4 ML (LOVENOX) SYR SC SCH (08:06)
[2021-06-12] MEDS: THIAMINE INJECTION 100 MG, FOLIC ACID INJECTION 1 MG, MAGNESIUM SULFATE 2 GM, VITAMIN M... IV SCH ×5 (08:06)
[2021-06-12] MEDS: SENNOSIDES 8.6 MG (SENOKOT) TAB PO SCH ×2 (08:06→21:21)
--- NOTE | 2021-06-12 09:24 | Tele-ICU Progress Note ---
Subjective Date Seen by a Provider: Jun 12, 2021 Time Seen by a Provider: 09:19 Subjective/Events-last exam CIDP, BLE weakness, getting IVIG thru port, more alert and less agitated, did not need Ativan LP only showed 1 WBC CSF cultures show no growth BC + for strep species, remains on IV Vanco/Cefepime Sepsis Event Evaluation Height, Weight, BMI Height: '" Weight: lbs. oz. kg; 27.29 BMI Method: Focused Exam Lactate Level 06/10/21 18:14: Lactic Acid Level 2.26*H 06/10/21 20:18: Lactic Acid Level 1.63 Exam Exam Patient acknowledged, consented, and participated in this virtual visit which was conducted using real time audio/video Vital Signs Date Time Temp Pulse Resp B/P (MAP) Pulse Ox O2 Delivery O2 Flow Rate FiO2 06/12/21 08:00 79 17 121/73 95 Room Air 06/12/21 08:00 Room Air 06/12/21 07:41 36.4 06/12/21 07:00 66 06/12/21 07:00 66 11 133/75 97 Room Air 06/12/21 06:00 66 16 122/70 95 Room Air 06/12/21 05:00 74 14 120/72 95 Room Air 06/12/21 04:00 71 13 121/70 95 Room Air 06/12/21 04:00 Room Air 06/12/21 03:00 71 16 115/63 95 Room Air 06/12/21 02:00 74 15 113/96 98 Room Air 06/12/21 01:00 60 06/12/21 01:00 78 12 115/73 95 Room Air 06/12/21 00:00 Room Air 06/12/21 00:00 36.8 06/12/21 00:00 68 12 116/78 95 Room Air 06/11/21 23:00 82 14 112/75 94 Room Air 06/11/21 22:00 79 14 120/72 95 Room Air 06/11/21 21:00 65 15 124/74 94 Room Air 06/11/21 20:00 Room Air 06/11/21 20:00 61 16 116/75 95 Room Air 06/11/21 19:00 70 06/11/21 19:00 68 16 130/69 94 Room Air 06/11/21 18:00 76 117/76 97 Room Air 06/11/21 17:00 65 113/71 92 Room Air 06/11/21 16:00 Room Air 06/11/21 16:00 65 15 110/68 93 Room Air 06/11/21 15:00 70 11 105/64 92 Room Air 06/11/21 14:00 88 13 120/66 95 Room Air 06/11/21 13:00 68 16 115/68 92 Room Air 06/11/21 13:00 69 06/11/21 12:00 77 32 110/69 93 Room Air 06/11/21 12:00 Room Air 06/11/21 11:00 68 10 118/70 93 Room Air 06/11/21 10:00 72 13 136/76 96 Room Air I & O 06/12/21 07:00 Intake Total 2415 ml Output Total 2550 ml Balance -135 ml Height & Weight Height: '" Weight: lbs. oz. kg; 27.29 BMI Method: General Appearance: No Apparent Distress, WD/WN, Anxious HEENT: PERRL/EOMI, Normal ENT Inspection, Pharynx Normal Neck: Full Range of Motion, Normal Inspection, Non Tender, Supple Respiratory: Chest Non Tender, Lungs Clear, Normal Breath Sounds, No Accessory Muscle Use, No Respiratory Distress Cardiovascular: Regular Rate, Rhythm, No Edema, Normal Peripheral Pulses, Other (Port looks dirty, not very red, no pus) Gastrointestinal: normal bowel sounds, non tender, soft Extremity: Normal Capillary Refill, Normal Inspection, Normal Range of Motion, Non Tender, No Calf Tenderness, No Pedal Edema Neurologic/Psychiatric: Alert, Oriented x3, Normal Mood/Affect, 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 withdrowal Able to stand up and walk ID - fevers (COVID and flu serology negative) -LP 06/10 -May have infection at port site --self medicated with IV Rocephin at home - started on IV Vancomyin, Cefepime, acyclovir - cx pending CIDP, has weakness in lower extremities, -getting IVIG thru port, RA and is on MTX and prednisone- as per PCP to cont ? no need for stress dose Polusynstance abuse -UDS + for amphetamines, oxycodene, opiods -Thiamine/Folic Acid/MVI QTc prolongations -533 - to follow Critical Care: Critically Ill Patient Time spent with patient (mins): 25 JIN NIXON MD Jun 12, 2021 09:24
[2021-06-12] MEDS ORDERED: TROUGH ORDER-PHARMACY XX ONE (11:00)
--- NOTE | 2021-06-12 11:45 | Consultation - Surgery ---
History of Present Illness History of Present Illness Patient Consulted On(tanika/time) 06/12/21 11:37 Date Seen by Provider: Jun 12, 2021 Time Seen by Provider: 11:37 History of Present Illness Consult requested by Dr. Quigley for port removal and vascular access. Patient is 61-year-old male who presented with confusion to emergency department. He was having fever and was found to have sepsis of unknown source. Patient had positive blood culture on 1 extremity and no growth on the second. Patient receives IVIG every 2 weeks. On the port over it there is a large scab from necrosis of skin. Unsure how long its been there. Patient it has been reported has been having multiple falls at home. After having Covid and Covid vaccine found to have CIDP. Has chronic pain which he is trying to be weaned off of. Patient currently in the ICU but stable for floor and being transferred to the floor. Patient had CT scan of the head with no acute issue upon admission. Allergies and Home Medications Allergies Coded Allergies: No Known Drug Allergies (Verified , 09/13/07) Patient Home Medication List Home Medication List Reviewed: Yes Aspirin (Aspirin EC) 81 Mg Tablet.dr, 81 MG PO DAILY, (Reported) Entered as Reported by: ALMA LOW on 06/11/211045 Last Action: Held Cholecalciferol (Vitamin D3) (Vitamin D3) 125 Mcg Tablet, 125 MCG PO DAILY, (Reported) Entered as Reported by: ALMA LOW on 06/11/211045 Last Action: Held Dextroamphetamine/Amphetamine (Dextroamp-Amphet ER 30 mg Cap) 30 Mg Cap.er.24h, 30 MG PO DAILY, (Reported) Entered as Reported by: ALMA LOW on 06/11/211041 Last Action: Held Fluconazole (Fluconazole) 200 Mg Tablet, 200 MG PO 3XWEEKLY, (Reported) Entered as Reported by: ALMA LOW on 06/11/211041 Last Action: Converted Fluoxetine HCl (Fluoxetine HCl) 20 Mg Capsule, 20 MG PO DAILY, (Reported) Entered as Reported by: MERRILL SILVA on 01/01/21810 Last Action: Continued Folic Acid (Folic Acid) 1 Mg Tablet, 1 MG PO DAILY, (Reported) Entered as Reported by: MERRILL SILVA on 01/01/21810 Last Action: Continued Hydrochlorothiazide (Hydrochlorothiazide) 12.5 Mg Tablet, 12.5 MG PO DAILY, (Reported) Entered as Reported by: MERRILL SILVA on 01/01/21810 Last Action: Held Hydromorphone HCl (Hydromorphone HCl) 4 Mg Tablet, 8 MG PO QID, (Reported) Entered as Reported by: ALMA LOW on 06/11/211041 Last Action: Held Immune Glob,Stephanie Caprylate(IgG) (Gamunex-C) 40 Gm/400 Ml Vial, 100 GM IJ EVERY 2 WEEKS, (Reported) Entered as Reported by: ALMA LOW on 06/11/211041 Last Action: Held Loratadine/Pseudoephedrine (Sm Lorata-Dine D 24Hr Tablet) 1 Each Tab.er.24h, 1 EA PO DAILY PRN for ALLERGY SYMPTOMS, (Reported) Entered as Reported by: ALMA LOW on 06/11/211041 Last Action: Held Methotrexate Sodium (Methotrexate) 2.5 Mg Tablet, 15 MG PO SUN, (Reported) Entered as Reported by: MERRILL SILVA on 01/01/21810 Last Action: Held Multivitamin (Multivitamin) 1 Each Tablet, 1 EACH PO DAILY, (Reported) Entered as Reported by: ALMA LOW on 06/11/211045 Last Action: Converted Nebivolol HCl (Nebivolol HCl) 20 Mg Tablet, 20 MG PO DAILY, (Reported) Entered as Reported by: ALMA LOW on 06/11/211041 Last Action: Converted Nystatin (Nystatin) 100,000 Unit/1 Ml Oral.susp, 5 ML PO QID, (Reported) Entered as Reported by: ALMA LOW on 06/11/211041 Last Action: Continued Oxycodone HCl (Oxycodone HCl) 30 Mg Tablet, 30 MG PO Q4H, (Reported) Entered as Reported by: ALMA LOW on 06/11/211041 Last Action: Held Oxycodone HCl/Acetaminophen (Oxycodone-Acetaminophen 10-325) 1 Each Tablet, 1-2 EACH PO Q4- 6H PRN for PAIN-MODERATE (5-7), (Reported) Entered as Reported by: MERRILL SILVA on 01/01/21810 Last Action: Held Zolpidem Tartrate (Ambien) 10 Mg Tablet, 10 MG PO HS, (Reported) Entered as Reported by: MERRILL SILVA on 01/01/21810 Last Action: Converted Discontinued Medications Dextroamphetamine/Amphetamine (Adderall Xr 30 mg Capsule) 30 Mg Cap.er.24h, 30 MG PO EVERY OTHER DAY, (Reported) Discontinued Reason: Duplicate Order Entered as Reported by: MERRILL SILVA on 01/01/21810 Last Action: Discontinued Nebivolol HCl (Bystolic) 20 Mg Tablet, 20 MG PO DAILY, (Reported) Discontinued Reason: Duplicate Order Entered as Reported by: MERRILL SILVA on 01/01/21810 Last Action: Discontinued [Benicar Hct] , (Reported) Discontinued Reason: No Longer Taking Entered as Reported by: BARBARA TAN on 05/06/092225 Last Action: Discontinued [Ivig] , EVERY THREE WEEKS, (Reported) Discontinued Reason: No Longer Taking Entered as Reported by: MERRILL SILVA on 01/01/21810 Last Action: Discontinued Past Rjjbccz-Bsnkcx-Wnqrbk Hx Patient Social History Smoking Status: Never a Smoker Alcohol Use?: Yes Have you traveled recently?: No Surgeries History of Surgeries: Yes (multiple laparotomies and SBO's) Surgeries: Appendectomy, Gallbladder Neurological Neurological Disorders: Neuropathy (CIDP) Reproductive System Hx Reproductive Disorders: No Musculoskeletal History of Musculoskeletal Dis: Yes Musculoskeletal Disorders: Rheumatoid Arthritis Family Medical History Significant Family History: No Pertinent Family Hx Review of Systems-General Constitutional: No chills; fever EENTM: No blurred vision, No double vision Respiratory: No cough Cardiovascular: No chest pain, No palpitations Gastrointestinal: No abdominal pain, No nausea, No vomiting Genitourinary: No decreased output, No discharge Musculoskeletal: No back pain, No joint pain Skin: No change in color, No change in hair/nails Psychiatric/Neurological: Denies Anxiety, Denies Depressed, Denies Emotional Problems All Other Systems Reviewed Negative Unless Noted: Yes (Negative excepted noted.) Physical Exam-General Problems Physical Exam Vital Signs Vital Signs - First Documented 06/10/21 06/10/21 06/11/21 18:00 21:54 01:34 Temp 36.0 Pulse 80 Resp 20 B/P (MAP) 149/91 (110) Pulse Ox 93 O2 Delivery Room Air FiO2 21 Capillary Refill : General Appearance: WD/WN, no apparent distress HEENT: PERRL/EOMI, normal ENT inspection Neck: supple, normal inspection Respiratory: chest non-tender, no respiratory distress, no accessory muscle use, other (left chest with skin necrosis/scab over port no surrounding erythema or fluctuance) Cardiovascular: regular rate, rhythm, no JVD Gastrointestinal: non tender, soft Rectal: deferred Back: no CVA tenderness, no vertebral tenderness Neurologic/Psychiatric: alert, depressed affect Skin: normal color (left chest at port area of scab/necrosis), warm/dry Lymphatic: no adenopathy Data Review Labs Laboratory Tests 06/11/21 12:16: Glucometer 181H 06/12/21 05:02: White Blood Count 8.5, Red Blood Count 3.90L, Hemoglobin 10.8L, Hematocrit 35L, Mean Corpuscular Volume 90, Mean Corpuscular Hemoglobin 28, Mean Corpuscular Hemoglobin Concent 31L, Red Cell Distribution Width 14.6H, Platelet Count 228, Mean Platelet Volume 10.8, Immature Granulocyte % (Auto) 1, Neutrophils (%) (Auto) 71, Lymphocytes (%) (Auto) 17, Monocytes (%) (Auto) 11, Eosinophils (%) (Auto) 1, Basophils (%) (Auto) 0, Neutrophils # (Auto) 6.0, Lymphocytes # (Auto) 1.4, Monocytes # (Auto) 0.9, Eosinophils # (Auto) 0.1, Basophils # (Auto) 0.0, Immature Granulocyte # (Auto) 0.1, Sodium Level 136, Potassium Level 4.7, Chloride Level 107, Carbon Dioxide Level 18L, Anion Gap 11, Blood Urea Nitrogen 29H, Creatinine 0.75, Estimat Glomerular Filtration Rate 101, BUN/Creatinine Ratio 39, Glucose Level 94, Calcium Level 7.8L, Corrected Calcium 8.9, Magnesium Level 2.4, Total Bilirubin 0.4, Aspartate Amino Transf (AST/SGOT) 18, Alanine Aminotransferase (ALT/SGPT) 25, Alkaline Phosphatase 75, Total Protein 5.4L, Albumin 2.6L Microbiology 06/10/21 Gram Stain - Final, Resulted 06/10/21 CSF Culture - Preliminary, Resulted No growth 06/10/21 Urine Culture - Preliminary, Resulted Gram Positive Cocci 06/10/21 Blood Culture - Preliminary, Resulted No growth Assessment/Plan Assessment/Plan Assessment/Plan Sepsis with bacteremia of unknown source Port could be source with skin necrosis/scab, one culture blood culture positive continues to improve being transferred to floor, will plan removing port on monday and replace later for access Altered mental status status post lumbar puncture no evidence of meningitis CIDP Rheumatoid arthritis on methotrexate Immunosuppression Alcoholism Alcohol withdrawal Chronic pain on large amounts of narcotics Narcotic withdrawal Will need to be NPO after midnight tomorrow. Obtain consent Clinical Quality Measures AMI/AHF: ASA po Prior to arrival: MICHELLE Watkins DO Jun 12, 2021 11:45
[2021-06-12] MEDS: diphenhydrAMINE 50 MG/ML INJ (BENADRYL) IVP PRN (11:57)
[2021-06-12] MEDS: ACETAMINOPHEN 325 MG TABLET PO PRN ×2 (11:59→19:38)
--- NOTE | 2021-06-12 12:24 | Physical Therapy Daily Note ---
PT Daily Note-Current Subjective Pt awake and up in chair. He did recognize this therapist and carried on a good conversation. Transfers SCALE: Activities may be completed with or without assistive devices. 2-Ipxghsnczk-iowzhdk completes the activity by him/herself with no assistance from a helper. 5-Set-up or Clean-up Assistance-helper sets up or cleans up; patient completes activity. [place] assists only prior to or following the activity. 4-Supervision or Touching Assistance-helper provides verbal cues and/or touching/steadying and/or contact guard assistance as patient completes activity. Assistance may be provided throughout the activity or intermittently. 3-Partial/Moderate Assistance-helper does LESS THAN HALF the effort. [place] lifts, holds or supports trunk or limbs, but provides less than half the effort. 2-Substantial/Maximal Assistance-helper does MORE THAN HALF the effort. [place] lifts or holds trunk or limbs and provides more than half the effort. 2-Qvpypihgd-jzyajr does ALL the effort. Patient does none of the effort to complete the activity. Or, the assistance of 2 or more helpers is required for the patient to complete the activity. If activity was not attempted, code reason: 7-Patient Refused. 9-Not Applicable-not attempted and the patient did not perform the activity before the current illness, exacerbation or injury. 10-Not Attempted due to Environmental Limitations-(lack of equipment, weather restraints, etc.). 88-Not Attempted due to Medical Conditions or Safety Concerns. Exercises Standing: Heel/toe raises, Marching, Mini squats, Weight shifts Standing Reps: 10 Pt was unsteady on his feet and needed Min Assist for stability. He had a tremor in the LEs during initial stance and during mini squats. Assessment Current Status: Fair Progress Cognition improved this session. Pt willing to work and has knowledge of self exercises to be performed periodically during the day. 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 PT Snf Goals Time Frame: Jun 26, 2021 Roll Left & Right (QC): 6 Sit to Lying (QC): 6 Lying-Sitting on Side/Bed(QC): 6 Sit to Stand (QC): 4 Chair/Voq-bv-Agdlh Xfer(QC): 4 Toilet Transfer (QC): 4 Walk 10 feet (QC): 4 Walk 50ft with 2 Turns (QC): 4 Walk 150 ft (QC): 4 PT Plan Treatment/Plan Treatment Plan: Continue Plan of Care Treatment Plan: Bed Mobility, Education, Functional Activity Joselito, Functional Strength, Gait, Safety, Therapeutic Exercise, Transfers Treatment Duration: Jun 26, 2021 Frequency: 6 times per week Estimated Hrs Per Day: .25 hour per day Time/GCodes Time In: 1130 Time Out: 1150 Total Billed Treatment Time: 20 Total Billed Treatment visit, exercise 20 min ROSA WOODARD PT Jun 12, 2021 12:24
[2021-06-12] MEDS: LORazepam INJ 2 MG/ML (ATIVAN) VIAL IM/IV PRN (12:48)
[2021-06-12] MEDS: NYSTATIN ORAL SUSP 5 ML UDC PO SCH ×3 (13:05→21:28)
[2021-06-12 15:48] VITALS: BP 125/73
[2021-06-12 19:29] VITALS: BP 128/81
[2021-06-12] MEDS: morphine INJ 4 MG/ML 1 ML (VIAL/SYRINGE) IV PRN (20:03)
[2021-06-12] MEDS: ZOLPIDEM 5 MG (AMBIEN) TAB PO SCH (21:21)
[2021-06-12 23:47] VITALS: BP 135/68
[2021-06-13] MEDS: KETOROLAC 15 MG/ML VIAL IV SCH ×4 (01:21→17:29)
[2021-06-13] MEDS: VANCOMYCIN INJECTION 1,750 MG in NS IV 500 ML 500 ML IV SCH ×2 (01:21→11:21)
[2021-06-13 04:09] VITALS: BP 119/67
[2021-06-13] MEDS: CEFEPIME INJECTION 2,000 MG in NS (IVPB) 50 ML IV SCH ×3 (05:42→21:17)
[2021-06-13 06:09] LABS: BASOPHILS % (AUTO) 0 % (0-10); EOSINOPHILS # (AUTO) 0.2 10^3/uL (0.0-0.3); EOSINOPHILS % (AUTO) 3 % (0-10); HEMATOCRIT 37 % (40-54); HEMOGLOBIN 11.4 g/dL (13.3-17.7); LYMPHOCYTES % (AUTO) 29 % (12-44); MEAN CORPUSCULAR HEMOGLOBIN 28 pg (25-34); MEAN CORPUSCULAR HGB CONC 31 g/dL (32-36); MEAN CORPUSCULAR VOLUME 91 fL (80-99); MEAN PLATELET VOLUME 10.9 fL (9.0-12.2); MONOCYTES # (AUTO) 0.5 10^3/uL (0.0-1.0); MONOCYTES % (AUTO) 8 % (0-12); NEUTROPHILS # (AUTO) 4.3 10^3/uL (1.8-7.8); NEUTROPHILS % (AUTO) 61 % (42-75); PLATELET COUNT 248 10^3/uL (130-400); WHITE BLOOD COUNT 7.1 10^3/uL (4.3-11.0)
[2021-06-13 06:23] LABS: ALBUMIN 2.7 GM/DL (3.2-4.5)
[2021-06-13 06:24] LABS: POTASSIUM 4.5 MMOL/L (3.6-5.0)
[2021-06-13 06:25] LABS: CALCIUM 7.9 MG/DL (8.5-10.1)
[2021-06-13 06:26] LABS: TOTAL PROTEIN 5.5 GM/DL (6.4-8.2)
[2021-06-13 06:28] LABS: BILIRUBIN,TOTAL 0.4 MG/DL (0.1-1.0)
[2021-06-13 06:30] LABS: CREATININE SERUM 0.79 MG/DL (0.60-1.30)
--- NOTE | 2021-06-13 06:51 | Progress Note ---
Subjective Date Seen by a Provider: Jun 13, 2021 Time Seen by a Provider: 11:45 Subjective/Events-last exam Patient is doing very well Strep in blood cultures Port will be removed tomorrow by Dr. Whitt Checked meds and labs No pain at this point headache is better Attempted to leave AMA last night but chick room supervisor talked him out of it He only has his brother in [facility] who can come up and help His is just not formally Review of Systems General: Fatigue, Malaise Focused Exam Lactate Level 06/10/21 18:14: Lactic Acid Level 2.26*H 06/10/21 20:18: Lactic Acid Level 1.63 Objective Exam Last Set of Vital Signs Vital Signs Date Time Temp Pulse Resp B/P (MAP) Pulse Ox O2 Delivery O2 Flow Rate FiO2 06/13/21 04:09 36.9 65 18 119/67 (84) 98 Room Air 06/11/21 01:34 21 Capillary Refill : I&O Intake and Output 06/13/21 00:00 Intake Total 3120 ml Output Total 2250 ml Balance 870 ml Intake Oral 2120 ml IV Total 1000 ml Output Urine Total 2250 ml # Voids 1 # Bowel Movements 1 General: Alert, Oriented X3, Cooperative, No Acute Distress Lungs: Clear to Auscultation, Normal Air Movement Heart: Regular Rate, Normal S1, Normal S2, No Murmurs Psych/Mental Status: Mental Status NL, Mood NL Results Lab Laboratory Tests 06/12/21 11:21: Vancomycin Level Trough 15.4 06/12/21 11:38: Glucometer 83 06/13/21 05:31: White Blood Count 7.1, Red Blood Count 4.10L, Hemoglobin 11.4L, Hematocrit 37L, Mean Corpuscular Volume 91, Mean Corpuscular Hemoglobin 28, Mean Corpuscular Hemoglobin Concent 31L, Red Cell Distribution Width 14.1, Platelet Count 248, Mean Platelet Volume 10.9, Immature Granulocyte % (Auto) 1, Neutrophils (%) (A uto) 61, Lymphocytes (%) (Auto) 29, Monocytes (%) (Auto) 8, Eosinophils (%) (Auto) 3, Basophils (%) (Auto) 0, Neutrophils # (Auto) 4.3, Lymphocytes # (Auto) 2.0, Monocytes # (Auto) 0.5, Eosinophils # (Auto) 0.2, Basophils # (Auto) 0.0, Immature Granulocyte # (Auto) 0.1, Sodium Level 138, Potassium Level 4.5, Chloride Level 109H, Carbon Dioxide Level 19L, Anion Gap 10, Blood Urea Nitrogen 21H, Creatinine 0.79, Estimat Glomerular Filtration Rate 100, BUN/Creatinine Ratio 27, Glucose Level 80, Calcium Level 7.9L, Corrected Calcium 8.9, Total Bilirubin 0.4, Aspartate Amino Transf (AST/SGOT) 21, Alanine Aminotransferase (ALT/SGPT) 29, Alkaline Phosphatase 88, Total Protein 5.5L, Albumin 2.7L Microbiology 06/10/21 MRSA Screen - Final, Complete MRSA not isolated 06/10/21 Gram Stain - Final, Resulted 06/10/21 CSF Culture - Preliminary, Resulted No growth 06/10/21 Urine Culture - Preliminary, Resulted Staphylococcus epidermidis Staphylococcus haemolyticus No Susceptibility Performed 06/10/21 Blood Culture - Preliminary, Resulted No growth Assessment/Plan Assessment/Plan Assess & Plan/Chief Complaint Assessment: Sepsis with bacteremia previously was of unknown source but now from infected [place] port with strep Altered mental status status post lumbar puncture no evidence of meningitis so discontinued ampicillin and acyclovir CIDP Rheumatoid arthritis on methotrexate holding immunosuppressants Immunosuppression Alcoholism Alcohol withdrawal protocol Chronic pain on large amounts of narcotics Narcotic withdrawal Leukocytosis improved Plan: ICU care Withdrawal protocol Antibiotics Await blood cultures 06/12/2021: Transfer to fourth floor [place] port removal on Monday and draw blood cultures then replace on 06/13/2021: Continue antibiotics Port removal tomorrow Diagnosis/Problems Diagnosis/Problems (1) Encephalopathy acute (2) CIDP (chronic inflammatory demyelinating polyneuropathy) (3) Rheumatoid arthritis (4) Alcohol withdrawal (5) Alcoholism (6) Narcotic withdrawal (7) Chronic pain (8) Leukocytosis (9) Altered mental status (10) Immunocompromised Status: Acute Clinical Quality Measures AMI/AHF: ASA po Prior to arrival: YUAN Babcock DO Jun 13, 2021 06:51
[2021-06-13] MEDS ORDERED: MULTIVIT W/MINERALS TAB (THERAGRAN M) PO SCH (07:00)
[2021-06-13 07:12] VITALS: BP 137/66
[2021-06-13] MEDS: ENOXAPARIN 40 MG/0.4 ML (LOVENOX) SYR SC SCH (08:37)
[2021-06-13] MEDS: LORazepam INJ 2 MG/ML (ATIVAN) VIAL IM/IV PRN (08:37)
[2021-06-13] MEDS: NYSTATIN ORAL SUSP 5 ML UDC PO SCH ×4 (08:37→21:12)
[2021-06-13] MEDS: DOCUSATE SODIUM 100 MG (COLACE) CAP PO SCH ×2 (08:38→21:12)
[2021-06-13] MEDS: morphine INJ 4 MG/ML 1 ML (VIAL/SYRINGE) IV PRN ×2 (08:39→20:13)
[2021-06-13] MEDS: SENNOSIDES 8.6 MG (SENOKOT) TAB PO SCH ×2 (08:45→21:12)
[2021-06-13] MEDS ORDERED: FLUoxetine HCL 20 MG (PROzac) CAP PO SCH (09:00)
[2021-06-13] MEDS ORDERED: FOLIC ACID 1 MG TAB PO SCH (09:00)
[2021-06-13] MEDS: HYDROmorphone (DILAUDID) 4 MG TAB PO PRN ×3 (09:19→22:59)
[2021-06-13 11:21] VITALS: BP 142/78
--- NOTE | 2021-06-13 12:34 | Progress Note - Surgery ---
Subjective Date Seen by a Provider: Jun 13, 2021 Time Seen by a Provider: 12:29 Subjective/Events-last exam Laying in bed. Wasn't feeling well this morning. Feeling better now. No new complaints. Denies n/v fever sweats chills shortness of breath or chest pain at this time. Focused Exam Lactate Level 06/10/21 18:14: Lactic Acid Level 2.26*H 06/10/21 20:18: Lactic Acid Level 1.63 Objective Exam Vital Signs Date Time Temp Pulse Resp B/P (MAP) Pulse Ox O2 Delivery O2 Flow Rate FiO2 06/13/21 11:21 37.0 64 18 142/78 (99) 97 Room Air 06/13/21 08:54 98 Room Air 06/13/21 07:57 Room Air 06/13/21 07:12 36.8 63 18 137/66 (89) 98 Room Air 06/13/21 06:57 36.8 06/13/21 04:09 36.9 65 18 119/67 (84) 98 Room Air 06/12/21 23:47 36.5 67 17 135/68 (90) 98 Room Air 06/12/21 21:51 36.8 06/12/21 21:00 Room Air 06/12/21 20:33 36.8 06/12/21 19:29 36.8 78 18 128/81 (97) 99 Room Air 06/12/21 15:48 36.8 70 18 125/73 (90) 99 Room Air I & O 06/13/21 07:00 Intake Total 2720 ml Output Total 1400 ml Balance 1320 ml Capillary Refill : General Appearance: No Apparent Distress, WD/WN, Anxious HEENT: PERRL/EOMI, Normal ENT Inspection Neck: Full Range of Motion, Normal Inspection, Non Tender, Supple Respiratory: Chest Non Tender, No Accessory Muscle Use, No Respiratory Distress Cardiovascular: Regular Rate, Rhythm, No JVD, Other (scab/necrosis over port, no surrounding erythema) Gastrointestinal: non tender, soft Extremity: Normal Capillary Refill, Normal Inspection, Normal Range of Motion, Non Tender, No Calf Tenderness, No Pedal Edema Neurologic/Psychiatric: Alert, Oriented x3, Normal Mood/Affect, launch check out II-XII Norm as Tested, Other (4/5 strength in his bilateral lower extremities, 5/5 strength in upper extremities, ambulates with assistance) Skin: Normal Color, Warm/Dry, Ecchymosis (scattered bruising along his extremities but no tenderness in these areas), Other (scab around port site around left clavicle, no redness or tenderness, no fluctuance) Lymphatic: No Adenopathy Results Lab Laboratory Tests 06/13/21 05:31: White Blood Count 7.1, Red Blood Count 4.10L, Hemoglobin 11.4L, Hematocrit 37L, Mean Corpuscular Volume 91, Mean Corpuscular Hemoglobin 28, Mean Corpuscular Hemoglobin Concent 31L, Red Cell Distribution Width 14.1, Platelet Count 248, Mean Platelet Volume 10.9, Immature Granulocyte % (Auto) 1, Neutrophils (%) (Auto) 61, Lymphocytes (%) (Auto) 29, Monocytes (%) (Auto) 8, Eosinophils (%) (Auto) 3, Basophils (%) (Auto) 0, Neutrophils # (Auto) 4.3, Lymphocytes # (Auto) 2.0, Monocytes # (Auto) 0.5, Eosinophils # (Auto) 0.2, Basophils # (Auto) 0.0, Immature Granulocyte # (Auto) 0.1, Sodium Level 138, Potassium Level 4.5, Chloride Level 109H, Carbon Dioxide Level 19L, Anion Gap 10, Blood Urea Nitrogen 21H, Creatinine 0.79, Estimat Glomerular Filtration Rate 100, BUN/Creatinine Ratio 27, Glucose Level 80, Calcium Level 7.9L, Corrected Calcium 8.9, Total Bilirubin 0.4, Aspartate Amino Transf (AST/SGOT) 21, Alanine Aminotransferase (ALT/SGPT) 29, Alkaline Phosphatase 88, Total Protein 5.5L, Albumin 2.7L Microbiology 06/10/21 MRSA Screen - Final, Complete MRSA not isolated 06/10/21 Gram Stain - Final, Resulted 06/10/21 CSF Culture - Preliminary, Resulted No growth 06/10/21 Urine Culture - Preliminary, Resulted Staphylococcus epidermidis Staphylococcus haemolyticus No Susceptibility Performed 06/10/21 Blood Culture - Preliminary, Resulted No growth Assessment/Plan Assessment/Plan Assessment/Plan Sepsis with bacteremia of unknown source Port could be source with skin necrosis/scab, one culture blood culture positive was transferred to floor, will plan removing port on Monday and replace later for access Altered mental status status post lumbar puncture no evidence of meningitis CIDP Rheumatoid arthritis on methotrexate Immunosuppression Alcoholism Alcohol withdrawal Chronic pain on large amounts of narcotics Narcotic withdrawal Will need to be NPO after midnight consent. Once okay with Medicine will plan replacing port on right side. Clinical Quality Measures AMI/AHF: ASA po Prior to arrival: MICHELLE Watkins DO Jun 13, 2021 12:34
[2021-06-13 15:53] VITALS: BP 129/66
[2021-06-13 19:45] VITALS: BP 138/74
[2021-06-13] MEDS: ZOLPIDEM 5 MG (AMBIEN) TAB PO SCH (21:11)
--- NOTE | 2021-06-14 04:51 | Discharge Summary ---
Diagnosis/Chief Complaint Date of Admission Jun 10, 2021 at 21:01 Date of Discharge Jun 14, 2021 at 00:05 Discharge Diagnosis Assessment: Sepsis with bacteremia previously was of unknown source but now confirmed from infected [place] port with strep Altered mental status status post lumbar puncture no evidence of meningitis so discontinued ampicillin and acyclovir CIDP Rheumatoid arthritis on methotrexate holding immunosuppressants Immunosuppression Alcoholism Alcohol withdrawal protocol Chronic pain on large amounts of narcotics Narcotic withdrawal Leukocytosis improved Plan: ICU care Withdrawal protocol Antibiotics Await blood cultures 06/12/2021: Transfer to fourth floor [place] port removal on Monday and draw blood cultures then replace on 06/13/2021: Continue antibiotics Port removal tomorrow Discharge Summary Discharge Physical Examination Allergies: Coded Allergies: No Known Drug Allergies (Verified , 09/13/07) Vitals & I&Os Vital Signs Date Time Temp Pulse Resp B/P (MAP) Pulse Ox O2 Delivery O2 Flow Rate FiO2 06/13/21 22:59 36.7 06/13/21 20:10 Room Air 06/13/21 19:45 65 18 138/74 (95) 97 06/11/21 01:34 21 Hospital Course Was the Problem List Reviewed?: Yes Hospital course: Patient had a lengthy hospital course after he was admitted for confusion and sepsis and completed entire protocol due to no bacterial source initially but blood cultures were all positive for strep and port was noted to be breaking down the skin Dr. Whitt was consulted and patient was scheduled for port removal on Monday and replaced on after blood cultures negative. Narcotic and alcohol withdrawal management with protocol. Patient left the hospital without notifying nursing staff or signing AMA form. Labs (last 24 hrs) Laboratory Tests 06/10/21 18:14: White Blood Count 18.6H, Red Blood Count 4.62, Hemoglobin 12.8L, Hematocrit 42, Mean Corpuscular Volume 91, Mean Corpuscular Hemoglobin 28, Mean Corpuscular Hemoglobin Concent 31L, Red Cell Distribution Width 14.7H, Platelet Count 316, Mean Platelet Volume 10.7, Immature Granulocyte % (Auto) 1, Neutrophils (%) (Auto) 93H, Lymphocytes (%) (Auto) 4L, Monocytes (%) (Auto) 2, Eosinophils (%) (Auto) 0, Basophils (%) (Auto) 0, Neutrophils # (Auto) 17.3H, Lymphocytes # (Auto) 0.7L, Monocytes # (Auto) 0.4, Eosinophils # (Auto) 0.0, Basophils # (Auto) 0.0, Immature Granulocyte # (Auto) 0.1, Neutrophils % (Manual) 92, Lymphocytes % (Manual) 6, Monocytes % (Manual) 2, Blood Morphology Comment NORMAL, Prothrombin Time 12.1L, INR Comment 0.9, Activated Partial Thromboplast Time 23L, Sodium Level 137, Potassium Level 4.3, Chloride Level 99, Carbon Dioxide Level 22, Anion Gap 16H, Blood Urea Nitrogen 41H, Creatinine 1.10, Estimat Glomerular Filtration Rate 75, BUN/Creatinine Ratio 37, Glucose Level 121H, Lactic Acid Level 2.26*H, Calcium Level 9.0, Corrected Calcium 9.3, Magnesium Level 2.4, Total Bilirubin 0.6, Aspartate Amino Transf (AST/SGOT) 24, Alanine Aminotransferase (ALT/SGPT) 33, Alkaline Phosphatase 114, Lactate Dehydrogenase 419H, Troponin I < 0.028, C-Reactive Protein High Sensitivity 0.61H, Total Protein 7.6, Albumin 3.6, Procalcitonin 0.36H, Cytomegalovirus DNA Quant (PCR) , CMV DNA Quant PCR log IU/mL , Influenza Type A (RT-PCR) Not Detected, Influenza Type B (RT-PCR) Not Detected, SARS-CoV-2 RNA (RT-PCR) Not Detected 06/10/21 19:47: Serum Alcohol < 10 06/10/21 19:58: Urine Color YELLOW, Urine Clarity CLEAR, Urine pH 5.5, Urine Specific [place] 1.025H, Urine Protein TRACEH, Urine Glucose (UA) 2+H, Urine Ketones NEGATIVE, Urine Nitrite NEGATIVE, Urine Bilirubin NEGATIVE, Urine Urobilinogen 0.2, Urine Leukocyte Esterase NEGATIVE, Urine RBC (Auto) NEGATIVE, Urine RBC NONE, Urine WBC NONE, Urine Crystals NONE, Urine Bacteria NEGATIVE, Urine Casts NONE, Urine Mucus SMALLH, Urine Culture Indicated CULTURE PENDING, Urine Opiates Screen POSITIVEH, Urine Oxycodone Screen POSITIVEH, Urine Methadone Screen NEGATIVE, Urine Propoxyphene Screen NEGATIVE, Urine Barbiturates Screen NEGATIVE, Ur Tricyclic Antidepressants Screen NEGATIVE, Urine Phencyclidine Screen NEGATIVE, Urine Amphetamines Screen POSITIVEH, Urine Methamphetamines Screen NEGATIVE, Urine Benzodiazepines Screen NEGATIVE, Urine Cocaine Screen NEGATIVE, Urine Cannabinoids Screen NEGATIVE 06/10/21 20:18: Lactic Acid Level 1.63, Hepatitis A IgM Antibody Non-Reactive, Hepatitis B Surface Antigen Non-Reactive, Hepatitis B Core IgM Antibody Non-Reactive, Hepatitis C Antibody Non-Reactive, HIV (1&2) Ag and Ab Screen Referral Non- Reactive 06/10/21 20:50: CSF Tube Number 4, CSF Appearance CLEAR, CSF Color COLORLESS, CSF WBC 1, CSF RBC 18.8H, CSF Lymphocytes , CSF Mononuclear WBCs , CSF Polynuclear WBCs , CSF Glucose 71, CSF Total Protein 38 06/11/21 05:12: White Blood Count 8.4, Red Blood Count 4.39, Hemoglobin 12.1L, Hematocrit 39L, Mean Corpuscular Volume 88, Mean Corpuscular Hemoglobin 28, Mean Corpuscular Hemoglobin Concent 31L, Red Cell Distribution Width 14.6H, Platelet Count 271, Mean Platelet Volume 11.0, Immature Granulocyte % (Auto) 1, Neutrophils (%) (Auto) 85H, Lymphocytes (%) (Auto) 9L, Monocytes (%) (Auto) 5, Eosinophils (%) (Auto) 0, Basophils (%) (Auto) 0, Neutrophils # (Auto) 7.2, Lymphocytes # (Auto) 0.7L, Monocytes # (Auto) 0.4, Eosinophils # (Auto) 0.0, Basophils # (Auto) 0.0, Immature Granulocyte # (Auto) 0.1 06/11/21 05:17: Sodium Level 135, Potassium Level 4.6, Chloride Level 101, Carbon Dioxide Level 19L, Anion Gap 15H, Blood Urea Nitrogen 36H, Creatinine 0.81, Estimat Glomerular Filtration Rate 99, BUN/Creatinine Ratio 44, Glucose Level 99, Calcium Level 8.8 , Corrected Calcium 9.4, Phosphorus Level 4.6, Magnesium Level 2.5H, Total Bilirubin 0.6, Aspartate Amino Transf (AST/SGOT) 21, Alanine Aminotransferase (ALT/SGPT) 33, Alkaline Phosphatase 101, Total Protein 6.9, Albumin 3.3 06/11/21 08:24: Glucometer 90 06/11/21 12:16: Glucometer 181H 06/12/21 05:02: White Blood Count 8.5, Red Blood Count 3.90L, Hemoglobin 10.8L, Hematocrit 35L, Mean Corpuscular Volume 90, Mean Corpuscular Hemoglobin 28, Mean Corpuscular Hemoglobin Concent 31L, Red Cell Distribution Width 14.6H, Platelet Count 228, Mean Platelet Volume 10.8, Immature Granulocyte % (Auto) 1, Neutrophils (%) (Auto) 71, Lymphocytes (%) (Auto) 17, Monocytes (%) (Auto) 11, Eosinophils (%) (Auto) 1, Basophils (%) (Auto) 0, Neutrophils # (Auto) 6.0, Lymphocytes # (Auto) 1.4, Monocytes # (Auto) 0.9, Eosinophils # (Auto) 0.1, Basophils # (Auto) 0.0, Immature Granulocyte # (Auto) 0.1, Sodium Level 136, Potassium Level 4.7, Chloride Level 107, Carbon Dioxide Level 18L, Anion Gap 11, Blood Urea Nitrogen 29H, Creatinine 0.75, Estimat Glomerular Filtration Rate 101, BUN/Creatinine Ratio 39, Glucose Level 94, Calcium Level 7.8L, Corrected Calcium 8.9, Magnesium Level 2.4, Total Bilirubin 0.4, Aspartate Amino Transf (AST/SGOT) 18, Alanine Aminotransferase (ALT/SGPT) 25, Alkaline Phosphatase 75, Total Protein 5.4L, Albumin 2.6L 06/12/21 11:21: Vancomycin Level Trough 15.4 06/12/21 11:38: Glucometer 83 06/13/21 05:31: White Blood Count 7.1, Red Blood Count 4.10L, Hemoglobin 11.4L, Hematocrit 37L, Mean Corpuscular Volume 91, Mean Corpuscular Hemoglobin 28, Mean Corpuscular Hemoglobin Concent 31L, Red Cell Distribution Width 14.1, Platelet Count 248, Mean Platelet Volume 10.9, Immature Granulocyte % (Auto) 1, Neutrophils (%) (Auto) 61, Lymphocytes (%) (Auto) 29, Monocytes (%) (Auto) 8, Eosinophils (%) (Auto) 3, Basophils (%) (Auto) 0, Neutrophils # (Auto) 4.3, Lymphocytes # (Auto) 2.0, Monocytes # (Auto) 0.5, Eosinophils # (Auto) 0.2, Basophils # (Auto) 0.0, Immature Granulocyte # (Auto) 0.1, Sodium Level 138, Potassium Level 4.5, Chloride Level 109H, Carbon Dioxide Level 19L, Anion Gap 10, Blood Urea Nitrogen 21H, Creatinine 0.79, Estimat Glomerular Filtration Rate 100, BUN/Creatinine Ratio 27, Glucose Level 80, Calcium Level 7.9L, Corrected Calcium 8.9, Total Bilirubin 0.4, Aspartate Amino Transf (AST/SGOT) 21, Alanine Aminotransferase (ALT/SGPT) 29, Alkaline Phosphatase 88, Total Protein 5.5L, Albumin 2.7L Microbiology 06/10/21 MRSA Screen - Final, Complete MRSA not isolated 06/10/21 Gram Stain - Final, Complete 06/10/21 CSF Culture - Final, Complete No growth 06/10/21 Urine Culture - Preliminary, Resulted Staphylococcus epidermidis Staphylococcus haemolyticus No Susceptibility Performed 06/10/21 Blood Culture - Preliminary, Resulted No growth Pending Labs Microbiology Date/Time Source Procedure Growth Status 06/10/21 22:00 Nasal MRSA Screen - Final MRSA not isolated Complete 06/10/21 20:50 Cerebral Spinal Fluid Gram Stain - Final Complete 06/10/21 20:50 Cerebral Spinal Fluid CSF Culture - Final No growth Complete 06/10/21 19:58 Urine Straight Cath, In/Out Urine Culture - Preliminary Staphylococcus epidermidis Staphylococcus haemolyticus No Susceptibility Performed Resulted 06/10/21 19:33 Peripheral Lt Hand Blood Culture - Preliminary No growth Resulted 06/10/21 18:14 Peripheral Rt Forearm Blood Culture - Preliminary Streptococcus parasanguinis Gram Positive Cocci in Chains Resulted Laboratory Tests 06/10/21 18:14: White Blood Count 18.6, Red Blood Count 4.62, Hemoglobin 12.8, Hematocrit 42, Mean Corpuscular Volume 91, Mean Corpuscular Hemoglobin 28, Mean Corpuscular Hemoglobin Concent 31, Red Cell Distribution Width 14.7, Platelet Count 316, Mean Platelet Volume 10.7, Immature Granulocyte % (Auto) 1, Neutrophils (%) (Auto) 93, Lymphocytes (%) (Auto) 4, Monocytes (%) (Auto) 2, Eosinophils (%) (Auto) 0, Basophils (%) (Auto) 0, Neutrophils # (Auto) 17.3, Lymphocytes # ( Auto) 0.7, Monocytes # (Auto) 0.4, Eosinophils # (Auto) 0.0, Basophils # (Auto) 0.0, Immature Granulocyte # (Auto) 0.1, Neutrophils % (Manual) 92, Lymphocytes % (Manual) 6, Monocytes % (Manual) 2, Blood Morphology Comment NORMAL, Prothrombin Time 12.1, INR Comment 0.9, Activated Partial Thromboplast Time 23, Sodium Level 137, Potassium Level 4.3, Chloride Level 99, Carbon Dioxide Level 22, Anion Gap 16, Blood Urea Nitrogen 41, Creatinine 1.10, Estimat Glomerular Filtration Rate 75, BUN/Creatinine Ratio 37, Glucose Level 121, Lactic Acid Level 2.26, Calcium Level 9.0, Corrected Calcium 9.3, Magnesium Level 2.4, Total Bilirubin 0.6, A spartate Amino Transf (AST/SGOT) 24, Alanine Aminotransferase (ALT/SGPT) 33, Alkaline Phosphatase 114, Lactate Dehydrogenase 419, Troponin I < 0.028, C- Reactive Protein High Sensitivity 0.61, Total Protein 7.6, Albumin 3.6, Procalcitonin 0.36, Cytomegalovirus DNA Quant (PCR) , CMV DNA Quant PCR log IU/mL , Influenza Type A (RT-PCR) Not Detected, Influenza Type B (RT-PCR) Not Detected, SARS-CoV-2 RNA (RT-PCR) Not Detected 06/10/21 19:47: Serum Alcohol < 10 06/10/21 19:58: Urine Color YELLOW, Urine Clarity CLEAR, Urine pH 5.5, Urine Specific [place] 1.025, Urine Protein TRACE, Urine Glucose (UA) 2+, Urine Ketones NEGATIVE, Urine Nitrite NEGATIVE, Urine Bilirubin NEGATIVE, Urine Urobilinogen 0.2, Urine Leukocyte Esterase NEGATIVE, Urine RBC (Auto) NEGATIVE, Urine RBC NONE, Urine WBC NONE, Urine Crystals NONE, Urine Bacteria NEGATIVE, Urine Casts NONE, Urine Mucus SMALL, Urine Culture Indicated CULTURE PENDING, Urine Opiates Screen POSITIVE, Urine Oxycodone Screen POSITIVE, Urine Methadone Screen NEGATIVE, Urine Propoxyphene Screen NEGATIVE, Urine Barbiturates Screen NEGATIVE, Ur Tricyclic Antidepressants Screen NEGATIVE, Urine Phencyclidine Screen NEGATIVE, Urine Amphetamines Screen POSITIVE, Urine Methamphetamines Screen NEGATIVE, Urine Benzodiazepines Screen NEGATIVE, Urine Cocaine Screen NEGATIVE, Urine Cannabinoids Screen NEGATIVE 06/10/21 20:18: Lactic Acid Level 1.63, CSF Lactate Dehydrogenase [Pending], CSF Cryptococcus Antigen [Pending], C-Reactive Protein High Sens Interp [Pending], Hepatitis A IgM Antibody Non-Reactive, Hepatitis B Surface Antigen Non-Reactive, Hepatitis B Core IgM Antibody Non-Reactive, Hepatitis C Antibody Non-Reactive, Herpes Simplex Virus I DNA (PCR) [Pending], Herpes Simplex Virus II DNA (PCR) [Pending], HIV (1&2) Ag and Ab Screen Referral Non-Reactive 06/10/21 20:50: CSF Tube Number 4, CSF Appearance CLEAR, CSF Color COLORLESS, CSF WBC 1, CSF RBC 18.8, CSF Lymphocytes , CSF Mononuclear WBCs , CSF Polynuclear WBCs , CSF Glucose 71, CSF Total Protein 38 06/11/21 05:12: White Blood Count 8.4, Red Blood Count 4.39, Hemoglobin 12.1, Hematocrit 39, Mean Corpuscular Volume 88, Mean Corpuscular Hemoglobin 28, Mean Corpuscular Hemoglobin Concent 31, Red Cell Distribution Width 14.6, Platelet Count 271, Mean Platelet Volume 11.0, Immature Granulocyte % (Auto) 1, Neutrophils (%) (Auto) 85, Lymphocytes (%) (Auto) 9, Monocytes (%) (Auto) 5, Eosinophils (%) (Auto) 0, Basophils (%) (Auto) 0, Neutrophils # (Auto) 7.2, Lymphocytes # (Auto) 0.7, Monocytes # (Auto) 0.4, Eosinophils # (Auto) 0.0, Basophils # (Auto) 0.0, Immature Granulocyte # (Auto) 0.1 06/11/21 05:17: Sodium Level 135, Potassium Level 4.6, Chloride Level 101, Carbon Dioxide Level 19, Anion Gap 15, Blood Urea Nitrogen 36, Creatinine 0.81, Estimat Glomerular Filtration Rate 99, BUN/Creatinine Ratio 44, Glucose Level 99, Calcium Level 8.8, Corrected Calcium 9.4, Phosphorus Level 4.6, Magnesium Level 2.5, Total Bilirubin 0.6, Aspartate Amino Transf (AST/SGOT) 21, Alanine Aminotransferase (ALT/SGPT) 33, Alkaline Phosphatase 101, Total Protein 6.9, Albumin 3.3 06/11/21 08:24: Glucometer 90 06/11/21 12:16: Glucometer 181 06/12/21 05:02: White Blood Count 8.5, Red Blood Count 3.90, Hemoglobin 10.8, Hematocrit 35, Mean Corpuscular Volume 90, Mean Corpuscular Hemoglobin 28, Mean Corpuscular Hemoglobin Concent 31, Red Cell Distribution Width 14.6, Platelet Count 228, Mean Platelet Volume 10.8, Immature Granulocyte % (Auto) 1, Neutrophils (%) (Auto) 71, Lymphocytes (%) (Auto) 17, Monocytes (%) (Auto) 11, Eosinophils (%) (Auto) 1, Basophils (%) (Auto) 0, Neutrophils # (Auto) 6.0, Lymphocytes # (Auto) 1.4, Monocytes # (Auto) 0.9, Eosinophils # (Auto) 0.1, Basophils # (Auto) 0.0, Immature Granulocyte # (Auto) 0.1, Sodium Level 136, Potassium Level 4.7, Ch loride Level 107, Carbon Dioxide Level 18, Anion Gap 11, Blood Urea Nitrogen 29, Creatinine 0.75, Estimat Glomerular Filtration Rate 101, BUN/Creatinine Ratio 39, Glucose Level 94, Calcium Level 7.8, Corrected Calcium 8.9, Magnesium Level 2.4, Total Bilirubin 0.4, Aspartate Amino Transf (AST/SGOT) 18, Alanine Aminotransferase (ALT/SGPT) 25, Alkaline Phosphatase 75, Total Protein 5.4, Albumin 2.6 06/12/21 11:21: Vancomycin Level Trough 15.4 06/12/21 11:38: Glucometer 83 06/13/21 05:31: White Blood Count 7.1, Red Blood Count 4.10, Hemoglobin 11.4, Hematocrit 37, Mean Corpuscular Volume 91, Mean Corpuscular Hemoglobin 28, Mean Corpuscular Hemoglobin Concent 31, Red Cell Distribution Width 14.1, Platelet Count 248, Mean Platelet Volume 10.9, Immature Granulocyte % (Auto) 1, Neutrophils (%) (Auto) 61, Lymphocytes (%) (Auto) 29, Monocytes (%) (Auto) 8, Eosinophils (%) (Auto) 3, Basophils (%) (Auto) 0, Neutrophils # (Auto) 4.3, Lymphocytes # (Auto) 2.0, Monocytes # (Auto) 0.5, Eosinophils # (Auto) 0.2, Basophils # (Auto) 0.0, Immature Granulocyte # (Auto) 0.1, Sodium Level 138, Potassium Level 4.5, Chloride Level 109, Carbon Dioxide Level 19, Anion Gap 10, Blood Urea Nitrogen 21, Creatinine 0.79, Estimat Glomerular Filtration Rate 100, BUN/Creatinine Ratio 27, Glucose Level 80, Calcium Level 7.9, Corrected Calcium 8.9, Total Bilirubin 0.4, Aspartate Amino Transf (AST/SGOT) 21, Alanine Aminotransferase (ALT/SGPT) 29, Alkaline Phosphatase 88, Total Protein 5.5, Albumin 2.7 Discharge Home Medications: Active Scripts Active Reported Multivitamin 1 Each Tablet 1 Each PO DAILY Vitamin D3 (Cholecalciferol (Vitamin D3)) 125 Mcg Tablet 125 Mcg PO DAILY Aspirin EC (Aspirin) 81 Mg Tablet.dr 81 Mg PO DAILY Gamunex-C (Immune Glob,Stephanie Caprylate(IgG)) 40 Gm/400 Ml Vial 100 Gm IJ EVERY 2 WEEKS NEXT DOSE DUE 06-11-2021 Sm Lorata-Dine D 24Hr Tablet (Loratadine/Pseudoephedrine) 1 Each Tab.er.24h 1 Ea PO DAILY PRN Nebivolol HCl 20 Mg Tablet 20 Mg PO DAILY Dextroamp-Amphet ER 30 mg Cap (Dextroamphetamine/Amphetamine) 30 Mg Cap.er.24h 30 Mg PO DAILY Oxycodone HCl 30 Mg Tablet 30 Mg PO Q4H Fluconazole 200 Mg Tablet 200 Mg PO 3XWEEKLY FILLED 06-03-2021 #6/14 DAY SUPPLY Nystatin 100,000 Unit/1 Ml Oral.susp 5 Ml PO QID SWISH AND SWALLOW FILLED 06-03-2021 #140/7 DAY SUPPLY Hydromorphone HCl 4 Mg Tablet 8 Mg PO QID TAKES 2 (4MG)TABS Ambien (Zolpidem Tartrate) 10 Mg Tablet 10 Mg PO HS Oxycodone-Acetaminophen 10-325 (Oxycodone HCl/Acetaminophen) 1 Each Tablet 1-2 Each PO Q4- 6H PRN Methotrexate (Methotrexate Sodium) 2.5 Mg Tablet 15 Mg PO SUN TAKES 6 (2.5MG) TABS Hydrochlorothiazide 12.5 Mg Tablet 12.5 Mg PO DAILY Folic Acid 1 Mg Tablet 1 Mg PO DAILY Fluoxetine HCl 20 Mg Capsule 20 Mg PO DAILY Instructions to patient/family Please see electronic discharge instructions given to patient. Diagnosis/Problems Diagnosis/Problems (1) Encephalopathy acute (2) CIDP (chronic inflammatory demyelinating polyneuropathy) (3) Rheumatoid arthritis (4) Alcohol withdrawal (5) Alcoholism (6) Narcotic withdrawal (7) Chronic pain (8) Leukocytosis (9) Altered mental status (10) Immunocompromised Status: Acute Clinical Quality Measures AMI/AHF: ASA po Prior to arrival: YUAN Babcock DO Jun 14, 2021 04:51
[2021-06-14] MEDS ORDERED: fluCOnazole (DIFLUCAN) 100 MG TAB PO SCH (09:00)
== END 2021-06-14 00:05 | disposition left against medical advice (07) | DRG 314 ==
LOC: EDUNIT# 18:17 → ER 18:20 → ICU 21:01 → 4TH 06-12 14:45
PROVIDERS: ADMIT Internal Medicine; ATTEND Internal Medicine
PROC: 009U3ZX Drainage of Spinal Canal, Percutaneous Approach, Diagnostic (ICD-10-PCS; principal; 2021-06-10)
DX: T80.211A Bloodstream infection due to central venous catheter, initial encounter (principal); A40.8 Other streptococcal sepsis; G93.40 Encephalopathy, unspecified; F10.239 Alcohol dependence with withdrawal, unspecified; F11.13 Opioid abuse with withdrawal; G61.81 Chronic inflammatory demyelinating polyneuritis; Y90.0 Blood alcohol level of less than 20 mg/100 ml; Z91.81 History of falling; Z20.822 Contact with and (suspected) exposure to COVID-19; U09.9 Post COVID-19 condition, unspecified; M06.9 Rheumatoid arthritis, unspecified; I10 Essential (primary) hypertension; G89.29 Other chronic pain; Z79.82 Long term (current) use of aspirin
CPT/HCPCS: 36415; 62270; 70450; 71045; 80053; 80074; 80202; 80306; 80320; 81000; 82945; 82947; 83605; 83615; 83735; 84100; 84145; 84157; 84484; 85007; 85025; 85027; 85610; 85730; 86141; 86703; 87040; 87070; 87077; 87081; 87088; 87205; 87529; 87636; 87910; 89051; 93005; 94760

== ENCOUNTER → 2021-06-14 | Day surgery (SDC) | payer BC ==
[~2021-06-14] MED LIST changes: +ASPI-1238 PO; +CALC-250 PO; +DEXT30CA4 PO; +FLUC200T9 PO; +HYDR4TAB PO; +IMMU40VI IJ; +LORA1TAB54 PO; +MULT-1136 PO; +NEBI20TA6 PO; +NYST1000 PO; +OXYC-527 PO
== END | disposition left against medical advice (07) ==
LOC: SDC 06:43
PROVIDERS: ATTEND Surgery